=== PATIENT | male | born 1940 | race Caucasian/White ===

== ENCOUNTER → 2017-11-20 | Outpatient (CLI) | payer MEDICARE, OTHER ==
[~2017-11-20] MED LIST: AMIODARONE HCL200 MG PO; ASPIR 8181 MG PO; COUMADIN2.5 MG PO; COUMADIN5 MG PO; GABAPENTIN100 MG PO; HYDROCHLOROTH12.5 M1 PO; LEVEMIR100 UNIT/1 SQ; LIPITOR20 MG PO; NOVOLIN R100 UNIT/1 SQ; RENA-VITE RX T1 EACH PO; TRUJEO SC; TRULICITY IM; VITAMIN D35000 UNIT PO; WARFARIN SODIU2.5 MG PO; Z.0.AMARYL4 MG PO; Z.0.COUMADIN6 MG PO; Z.0.DEMADEX20 MG PO; Z.0.FLOMAX0.4 MG PO; Z.0.HYDRALAZINE HCL5 PO; Z.0.LANTUS100 UNIT/1 SQ; Z.0.LOPRESSOR50 MG PO; Z.0.PRAVACHOL40 MG PO; Z.0.SYNTHROID100 MCG PO; Z.0.ZOLOFT100 MG PO
--- NOTE | 2017-11-20 17:53 | Diagnostic Imaging Report ---
PROCEDURE:X-RAY RIGHT KNEE, THREE OR MORE VIEWS COMPARISON:None. INDICATIONS:KNEE PAIN FINDINGS: The bones are well-mineralized. There are no acute, displaced fractures, dislocations, lytic or blastic lesions. Joint spaces are relatively well-preserved. There is no evidence of a joint effusion. Extensive vascular calcifications. CONCLUSION: No acute abnormalities. MRI of the knee is recommended if there is continued pain and clinical concern for ligamentous or meniscal injury. Scar Acosta M.D. Dictated by: Scar Acosta M.D. on 11/20/2017 at 18:02 Electronically approved by: Scar Acosta M.D. on 11/20/2017 at 18:02
--- NOTE | 2017-11-20 18:08 | Diagnostic Imaging Report ---
PROCEDURE:HIP RIGHT 2-3 VW (+/- PELVIS) COMPARISON:Patients [facility], DX, ABDOMEN-1VIEW (KUB), 02/16/2014, 11:04. INDICATIONS:RIGHT HIP PAIN FINDINGS: BONES:Decreased mineralization. No acute, displaced fracture or dislocation. Mild degenerative changes in the right hip joint. SOFT TISSUES:Extensive vascular calcifications.. OTHER:Negative. CONCLUSION: Mild degenerative changes in the right hip joint. No acute abnormalities. Scar Acosta M.D. Dictated by: Scar Acosta M.D. on 11/20/2017 at 18:17 Electronically approved by: Scar Acosta M.D. on 11/20/2017 at 18:17
== END ==
LOC: RAD 15:31
PROVIDERS: ATTEND Internal Medicine
DX: M25.551 Pain in right hip (principal); M25.561 Pain in right knee

== ENCOUNTER 2017-11-21 13:52 | Inpatient (IN) | payer MEDICARE, OTHER ==
[~2017-11-21] VITALS: Ht 172.7 cm; Wt 99.8 kg
[~2017-11-21 13:52] MED LIST changes: -COUMADIN2.5 MG PO; -COUMADIN5 MG PO
[2017-11-21] MEDS ORDERED: SODIUM CHLORIDE 0.9% 1000ML 1,000 ML IV STA (13:53)
[2017-11-21] MEDS ORDERED: PANTOPRAZOLE 40 MG 10ML VIAL IV STA (13:53)
--- OUTSIDE RECORDS SUMMARY | 2017-11-21 13:55 | XMS REPORT | Clinical Summary ---
Author Author [facility] Organization [facility] Address Unknown Phone Unavailable Care Team Providers Care Bolter Helper Name Role Phone Antoni Salcido MD PCP Allergies Active Allergy Reactions Severity Noted Date Comments No Known Drug Allergies Other (See Comments) 11/23/2015 Current Medications Prescription Sig. Disp. Refills Start End Date Status Date sertraline (ZOLOFT) 100 12/17/19 Active MG tablet 16 warfarin (COUMADIN) 2.5 5 mg. 12/17/19 Active MG tablet 16 multivitamin (THERAGRAN) Take 1 tablet by mouth Active tablet daily. aspirin (ECOTRIN) 81 MG Take 81 mg by mouth Active enteric coated tablet daily. atorvastatin (LIPITOR) 10 Take 10 mg by mouth Active MG tablet daily. gabapentin (NEURONTIN) Take 100 mg by mouth Active 100 MG capsule daily. midodrine (PROAMATINE) 5 TAKE 1 TABLET BY MOUTH ON 3 08/18/20 Active MG tablet THU,THU, AND FRIDAYS 30 16 MIN BEFORE DIALYSIS ED-[facility] 0.8 mg tablet TAKE ONE TABLET BY MOUTH 3 07/17/20 Active ONE TIME DAILY. 16 warfarin (COUMADIN) 5 MG Take 5 mg by mouth once 2 09/07/20 Active tablet daily. 16 TOUJEO SOLOSTAR 300 INJECT 30 UNITS UNDER THE 15 Syringe 1 12/10/19 Active unit/mL (1.5 mL) insulin SKIN EVERY MORNING. 17 pen levothyroxine (SYNTHROID, Take 1 tablet (125 mcg 90 tablet 1 01/07/20 01/07/20 Active LEVOXYL) 125 mcg tablet total) by mouth every 17 18 morning. insulin lispro (HumaLOG 5 units under the skin 10 pen 1 01/20/20 Active KwikPen) 100 unit/mL BID 17 injection pen blood sugar diagnostic Glucose testing TID: 300 strip 1 03/17/20 Active strips (ONETOUCH VERIO) [id number] 17 strip test strips TRULICITY 1.5 mg/0.5 mL INJECT 1 DOSE (0.5 ML) 12 Syringe 1 03/30/20 Active pen injector SUBCUTANEOUSLY EVERY WEEK 17 calcitriol (ROCALTROL) 12/17/19 01/07/20 Discontin 0.25 MCG capsule 16 17 ued dulaglutide (TRULICITY) Inject 1 Dose under the 12 Syringe 1 02/06/20 03/30/20 Discontin 1.5 mg/0.5 mL pen skin once a week. 16 17 ued injector amIODarone (PACERONE) 200 Take 200 mg by mouth 04/07/20 Discontin MG tablet daily. 17 ued insulin GLARGINE (TOUJEO Inject 30 Units under the 10 Syringe 1 12/09/19 Discontin SOLOSTAR) 300 unit/mL skin every morning. 16 17 ued (1.5 mL) insulin pen insulin ASPART (NovoLOG Inject 5 Units under the 10 pen 1 10/02/20 01/20/20 Discontin Flexpen) 100 unit/mL skin 3 (three) times a 16 17 ued insulin pen day with meals. levothyroxine (SYNTHROID, TAKE 1 TABLET (112 MCG 90 tablet 1 11/12/19 01/07/20 Discontin LEVOXYL) 112 mcg tablet TOTAL) BY MOUTH EVERY 17 17 ued MORNING. ONETOUCH VERIO strip test TEST 3 TIMES A DAY 300 strip 1 03/17/20 Discontin strips 17 17 ued Active Problems Problem Noted Date Acute renal failure 11/23/2015 Acute sinusitis 11/23/2015 Pulmonary collapse 11/23/2015 Benign essential HTN 11/23/2015 Chronic kidney disease, stage IV (severe) 11/23/2015 Unspecified disorder of kidney and ureter 11/23/2015 Essential hypertension 11/23/2015 Hypothyroidism 11/23/2015 Obesity, diabetes, and hypertension syndrome 11/23/2015 Other abnormal finding of specimen from respiratory organ or thorax 2015 Uncontrolled type 2 diabetes mellitus 11/23/2015 Encounters Date Type Specialty Care Team Description 10/18/2017 Refill Endocrinology Maria De Jesus Rider MD 07/12/2017 Refill Endocrinology Maria De Jesus Rider MD 04/07/2017 Office Visit Endocrinology Maria De Jesus Rider MD Uncontrolled type 2 diabetes mellitus without complication, without long-term current use of insulin (Primary Dx) 03/30/2017 Refill Endocrinology Maria De Jesus Rider MD 03/17/2017 Refill Endocrinology Em Stephen LVN 03/13/2017 Refill Endocrinology Maria De Jesus Rider MD 01/19/2017 Refill Endocrinology Em Stephen LVN 01/06/2017 Office Visit Endocrinology Maria De Jesus Rider MD Obesity, diabetes, and hypertension syndrome (Primary Dx) 01/06/2017 Orders Only Endocrinology Maria De Jesus Rider MD 12/09/2016 Refill Endocrinology Maria De Jesus Rider MD after 11/20/2016 Family History Medical History Relation Name Comments Coronary artery disease Father Cancer Maternal Aunt destiny Diabetes Maternal Aunt destiny Breast cancer Mother jacques Cancer Mother jacques Relation Name Status Comments Father Maternal Aunt destiny Mother jacques Social History Tobacco Use Types Packs/Day Years Used Date Never Smoker Smokeless Tobacco: Never Used Alcohol Use Drinks/Week oz/Week Comments No Sex Assigned at Date Recorded Not on file Last Filed Vital Signs Vital Sign Reading Time Taken Blood Pressure 90/52 04/07/2017 1:53 PM CDT Pulse 86 04/07/2017 1:53 PM CDT Temperature 36.8 C (98.3 F) 04/07/2017 1:53 PM CDT Respiratory Rate - - Oxygen Saturation 96% 04/07/2017 1:53 PM CDT Inhaled Oxygen - - Concentration Weight 98.9 kg (218 lb) 04/07/2017 1:53 PM CDT Height 172.7 cm (5' 8") 04/07/2017 1:53 PM CDT Body Mass Index 33.15 04/07/2017 1:53 PM CDT Plan of Treatment Health Maintenance Due Date Last Done Comments FOOT EXAM 1948 OPHTHALMOLOGY EXAM 1948 ZOSTER VACCINE 1998 PNEUMOCOCCAL 2003 POLYSACCHARIDE VACCINE AGE 65 AND OVER PNEUMOCOCCAL-13 2003 INFLUENZA VACCINE 05/19/2017 Results * Hemoglobin A1c (03/31/2017 1:04 PM) Component Value Ref Range Hemoglobin A1C 8.0 (H) <5.7 % of total Hgb Comment: For someone without known diabetes, a hemoglobin A1c value of 6.5% or greater indicates that they may have diabetes and this should be confirmed with a follow-up test. For someone with known diabetes, a value <7% indicates that their diabetes is well controlled and a value greater than or equal to 7% indicates suboptimal control. A1c targets should be individualized based on duration of diabetes, age, comorbid conditions, and other considerations. Currently, no consensus exists regarding use of hemoglobin A1c for diagnosis of diabetes for children. Specimen Performing Laboratory [facility] * Comprehensive metabolic panel (03/31/2017 1:04 PM) Only the most recent of 2 results within the time period is included. Component Value Ref Range Glucose 116 (H) 65 - 99 mg/dL Comment: Fasting reference interval For someone without known diabetes, a glucose value between 100 and 125 mg/dL is consistent with prediabetes and should be confirmed with a follow-up test. BUN, whole blood 33 (H) 7 - 25 mg/dL Creatinine 7.90 (H) 0.70 - 1.18 mg/dL Comment: For patients >49 years of age, the reference limit for Creatinine is approximately 13% higher for people identified as -English. EGFR Non-Afr. English 6 (L) > OR=60 mL/min/1.73m2 EGFR 7 (L) > OR=60 mL/min/1.73m2 BUN/creatinine ratio 4 (L) 6 - 22 (calc) Sodium 142 135 - 146 mmol/L Potassium 4.2 3.5 - 5.3 mmol/L Chloride 95 (L) 98 - 110 mmol/L CO2 30 20 - 31 mmol/L Calcium 9.1 8.6 - 10.3 mg/dL Protein 7.2 6.1 - 8.1 g/dL Albumin, S 3.7 3.6 - 5.1 g/dL Globulin, total 3.5 1.9 - 3.7 g/dL (calc) Albumin/globulin ratio 1.1 1.0 - 2.5 (calc) Total bilirubin 0.5 0.2 - 1.2 mg/dL Alkaline phosphatase 113 40 - 115 U/L AST 23 10 - 35 U/L ALT 31 9 - 46 U/L Specimen Performing Laboratory [facility] * POC glycosylated hemoglobin (Hb A1C) (01/06/2017 12:10 PM) Component Value Ref Range POC Hemoglobin A1C 6.0 % Specimen Performing Laboratory Blood * CBC with platelet and differential (12/30/2016 8:05 AM) Component Value Ref Range WBC 7.9 3.8 - 10.8 Thousand/uL RBC 3.78 (L) 4.20 - 5.80 Million/uL HGB 12.0 (L) 13.2 - 17.1 g/dL HCT 37.8 (L) 38.5 - 50.0 % MCV 100.0 80.0 - 100.0 fL MCH 31.8 27.0 - 33.0 pg MCHC 31.8 (L) 32.0 - 36.0 g/dL RDW 18.1 (H) 11.0 - 15.0 % Platelet count 244 140 - 400 Thousand/uL MPV 9.4 7.5 - 12.5 fL Neutrophils, absolute 4132 1500 - 7800 cells/uL Lymphocytes, absolute 2733 850 - 3900 cells/uL Monocytes, absolute 648 200 - 950 cells/uL Eosinophils, absolute 356 15 - 500 cells/uL Basophils, absolute 32 0 - 200 cells/uL Neutrophils 52.3 % Lymphocytes 34.6 % Monocytes 8.2 % Eosinophils 4.5 % Basophils + RC 0.4 % Specimen Performing Laboratory [facility] Narrative FASTING:YES * T3, free (12/30/2016 8:05 AM) Component Value Ref Range T3, free 1.9 (L) 2.3 - 4.2 pg/mL Specimen Performing Laboratory [facility] Narrative FASTING:YES * Thyroid stimulating hormone (12/30/2016 8:05 AM) Component Value Ref Range TSH 3.66 0.40 - 4.50 mIU/L Specimen Performing Laboratory [facility] Narrative FASTING:YES * T4, free (12/30/2016 8:05 AM) Component Value Ref Range T4, free 1.3 0.8 - 1.8 ng/dL Specimen Performing Laboratory [facility] Narrative FASTING:YES * Lipid panel (12/30/2016 8:05 AM) Component Value Ref Range Cholesterol, total 151 125 - 200 mg/dL HDL cholesterol 43 > OR=40 mg/dL Triglycerides 142 <150 mg/dL LDL cholesterol 80 <130 mg/dL (calc) calculated Comment: Desirable range <100 mg/dL for patients with CHD or diabetes and <70 mg/dL for diabetic patients with known heart disease. Cholesterol/HDL ratio 3.5 < OR=5.0 (calc) Non-HDL cholesterol 108 mg/dL (calc) Comment: Target for non-HDL cholesterol is 30 mg/dL higher than LDL cholesterol target. Specimen Performing Laboratory [facility] Narrative FASTING:YES after 11/20/2016 Insurance Payer Benefit Subscriber ID Type Phone Address Plan / Group MEDICARE MEDICARE [id number] Medicare [place], [place] PART A AND B [employer] [place] [id number] Commercial [employer]
--- OUTSIDE RECORDS SUMMARY | 2017-11-21 13:55 | XMS REPORT ---
Author Author [facility] Address Unknown Phone Unavailable Care Team Providers Care Interventional Technologist Name Role Phone DEA GONZALES Unavailable Unavailable Problems This patient has no known problems. Allergies, Adverse Reactions, Alerts This patient has no known allergies or adverse reactions. Medications This patient has no known medications. Results Test Description Test Time Test Comments Text Results Atomic Results Result Comments KNEE RIGHT THREE VIEWS [place] [id number] [place] [address] Patient Name: SUMI GUZMÁN MR #: [id number] : 1940 Age/Sex: 77/M Req #: [id number] Adm Physician: Ordered by: DEA GONZALES MD Report #: [id number] Location: [facility] Room/Bed: Procedure: [id number] DX/KNEE RIGHT THREE VIEWS Exam Date: 11/20/17 Exam Time: 1615 REPORT STATUS: Signed PROCEDURE: X- RAY RIGHT KNEE, THREE OR MORE VIEWS COMPARISON: None. INDICATIONS : KNEE PAIN FINDINGS: The bones are well-mineralized. There are no acute, displaced fractures, dislocations, lytic or blastic lesions. Joint spaces are relatively well-preserved. There is no evidence of a joint effusion. Extensive vascular calcifications. CONCLUSION: No acute abnormalities. MRI of the knee is recommended if there is continued pain and clinical concern for ligamentous or meniscal injury. Marisela Acosta M.D. Dictated by: Marisela Acosta M.D. on 11/20/2017 at 18: 02 Electronically approved by: Marisela Acosta M.D. on 11/20/2017 at 18:02 Dictated By: MARISELA ACOSTA MD 01 Transcribed By: DEJON on 11/20/171801 COPY TO: DEA GONZALES MD HIP RIGHT 2-3 VW (+/- PELVIS) [place] [address] Patient Name: SUMI GUZMÁN MR #: [id number] : 1940 Age/Sex: 77/M Req #: [id number] Adm Physician: Ordered by: DEA GONZALES MD Report #: [id number] Location: [facility] Room/Bed: Procedure: [id number] DX/HIP RIGHT 2-3 VW (+/- PELVIS) Exam Date: Exam Time: REPORT STATUS: Signed PROCEDURE: HIP RIGHT 2-3 VW (+/- PELVIS) COMPARISON: [facility], DX, ABDOMEN-1VIEW (KUB), 02/16/2014, 11:04. INDICATIONS: RIGHT HIP PAIN FINDINGS: BONES: Decreased mineralization. No acute, displaced fracture or dislocation. Mild degenerative changes in the right hip joint. SOFT TISSUES: Extensive vascular calcifications.. OTHER: Negative. CONCLUSION: Mild degenerative changes in the right hip joint. No acute abnormalities. Marisela Acosta M.D. Dictated by: Marisela Acosta M.D. on 11/20/2017 at 18:17 Electronically approved by : Marisela Acosta M.D. on 11/20/2017 at 18:17 Dictated By: MARISELA ACOSTA MD 16 Transcribed By: DEJON on 11/20/171816 COPY TO: DEA GONZALES MD
[2017-11-21] MEDS ORDERED: COUMADIN2.5 MG PO (14:15)
[2017-11-21] MEDS ORDERED: COUMADIN5 MG PO (14:15)
[2017-11-21 14:23] LABS: BASOPHILS % 0.2 % (0.0-1.0); EOSINOPHILS # (AUTO) 0.1 (0.0-0.4); EOSINOPHILS % 0.5 % (0.0-6.0); HEMATOCRIT 19.7 % (38.2-49.6); LYMPHOCYTES # (AUTO) 2.7 (1.0-3.2); LYMPHOCYTES % 16.9 % (18.0-39.1); MEAN CORPUSCULAR VOLUME 106.5 fL (81-99); MONOCYTES # (AUTO) 1.1 (0.2-0.8); MONOCYTES % 7.2 % (4.4-11.3); NEUTROPHILS # (AUTO) 11.7 (2.1-6.9); NEUTROPHILS % 73.5 % (38.7-80.0); PLATELET COUNT 206 x10e3/uL (140-360); RED BLOOD COUNT 1.85 x10e6/uL (4.3-5.7); RED CELL DISTRIBUTION WIDTH 16.3 % (11.7-14.4)
[2017-11-21 14:28] LABS: HEMOGLOBIN 6.1 g/dL (14.0-18.0)
[2017-11-21 14:36] LABS: PARTIAL THROMBOPLASTIN TIME 53.5 seconds (23.8-35.5)
[2017-11-21 14:41] LABS: ALBUMIN 2.8 g/dL (3.5-5.0); ALBUMIN/GLOBULIN RATIO 0.9 (0.8-2.0); ANION GAP 26.8 mmol/L (8-16); CALCIUM 8.3 mg/dL (8.4-10.2); CREATININE, SERUM 6.81 mg/dL (0.72-1.25); INR 4.69; POTASSIUM 3.8 mmol/L (3.5-5.1); PROTHROMBIN TIME 46.7 seconds (11.9-14.5)
--- NOTE | 2017-11-21 14:42 | Diagnostic Imaging Report ---
EXAMINATION: Chest, CHEST SINGLE (PORTABLE) INDICATION: Vomiting. COMPARISON: Portable chest 08/10/2009 FINDINGS: LINES: Right chest cardiac device with leads projecting over the expected regions of the right atrium and ventricle. Heart: Normal cardiac silhouette. Vascular: The pulmonary vasculature is within normal limits. Atherosclerotic calcifications of the aortic arch. Mediastinum: No mediastinal, hilar, or axillary mass or lymphadenopathy. Lungs: No parenchymal mass. No focal consolidation. Bibasilar atelectasis. Pleura: No pleural effusion. No pneumothorax. Bones: No acute osseous abnormality. Degenerative changes of the thoracic spine. Median sternotomy wires. Soft tissues: Normal. Impression: No acute radiographic abnormality. Signed by: Dr. Justus Shankar M.D. on 11/21/2017 2:39 PM
[2017-11-21] MEDS ORDERED: SODIUM CHLORIDE 0.9% 250ML 250 ML IV ONE (15:00)
[2017-11-21] MEDS: PANTOPRAZOL 40MG/SOD CHL 0.9% 50 ML IV SCH ×2 (15:52→21:00)
[2017-11-21] MEDS: ONDANSETRON HCL INJ 2 MG/ML VIAL IV PRN ×2 (16:33→22:51)
--- OUTSIDE RECORDS SUMMARY | 2017-11-21 16:33 | XMS REPORT | Clinical Summary ---
Author Author [facility] Address Unknown Phone Unavailable Care Team Providers Care Predatory Hunter Name Role Phone Antoni Salcido MD PCP [...] strip 1 03/17/20 Active strips (ONETOUCH VERIO) MFZ88-V97.65 17 strip test strips TRULICITY 1.5 mg/0.5 [...] approximately 13% higher for people identified as -Nicaraguan. EGFR Non-Afr. Nicaraguan 6 (L) > OR=60 mL/min/1.73m2 EGFR 7 [...] Phone Address Plan / Group MEDICARE MEDICARE [id number] Medicare [place], [place] PART A AND B [employer] [place] [id number] Commercial [employer]
[2017-11-21] MEDS: HYDROMORPHONE 2MG/ML INJ IV PRN ×2 (16:34→22:51)
[2017-11-21] MEDS: SODIUM CHLORIDE 0.9% 1000ML 1,000 ML IV SCH ×2 (16:40→23:04)
[2017-11-21] MEDS ORDERED: HYDROMORPHONE 2MG/ML INJ IV SCH (18:00)
[2017-11-21] MEDS ORDERED: SODIUM CHLORIDE 0.9% 250ML 250 ML ONE (18:48)
[2017-11-22] VITALS (30 sets, daily range): BP systolic 96–133; BP diastolic 50–75
[2017-11-22 02:54] LABS: HEMOGLOBIN 7.2 g/dL (14.0-18.0)
[2017-11-22 02:55] LABS: HEMATOCRIT 22.1 % (38.2-49.6)
[2017-11-22] MEDS: ONDANSETRON HCL INJ 2 MG/ML VIAL IV PRN ×3 (05:28→16:14)
[2017-11-22] MEDS: HYDROMORPHONE 2MG/ML INJ IV PRN ×2 (05:28→16:14)
[2017-11-22] MEDS: PANTOPRAZOL 40MG/SOD CHL 0.9% 50 ML IV SCH ×4 (05:44→16:36)
[2017-11-22] MEDS: SODIUM CHLORIDE 0.9% 1000ML 1,000 ML IV SCH ×2 (07:04→15:00)
[2017-11-22] MEDS ORDERED: DEXTROSE 50% SYRINGE 50 ML IV PRN (08:15)
[2017-11-22] MEDS: SERTRALINE HCL 100 MG TAB PO SCH (08:47)
[2017-11-22] MEDS: FOLIC ACID/CYANOCOB/PYRIDOXINE TAB PO SCH (08:47)
[2017-11-22] MEDS: GABAPENTIN 100 MG CAP PO SCH (08:47)
[2017-11-22] MEDS ORDERED: SODIUM CHLORIDE 0.9% 250ML 250 ML ONE (10:55)
--- NOTE | 2017-11-22 11:11 | History and Physical ---
DATE OF : 1940 REASON FOR ADMISSION: A 77-year-old male comes in with fatigue and coffee-ground emesis and black stools. HISTORY OF PRESENTING ILLNESS: This is Mr. Shane Scott who has history of aortic valve replacement, is on Coumadin and Warfarin since the replacement, and for 1 week, the patient had black stools and coffee-ground emesis, and the patient did not go to his physician, came in today, and was found to have GI bleeding with a hemoglobin of 6.8. PAST MEDICAL HISTORY: History of hypertension, history of end-stage renal disease, history of aortic valve replacement, and history of pacemaker. MEDICATIONS: As per medication reconciliation. ALLERGIES: See nurses' notes. SOCIAL HISTORY: The patient denies any alcohol or IV drug abuse. Resides in a long term. FAMILY HISTORY: Noncontributory. REVIEW OF SYSTEMS: Negative for chest pain. Positive for some shortness of breath. No nausea, vomiting, or diarrhea. Positive for hematochezia and hematemesis. No blurry vision. No diplopia. PHYSICAL EXAMINATION GENERAL: The patient is alert and oriented x 3, very fatigued and very frail. HEENT: Normocephalic, atraumatic. Pupils reactive to light and accommodation. CVS: S1 and S2, normal. Positive for valvular heart sounds. ABDOMEN: Nontender and nondistended. EXTREMITIES: No clubbing. No cyanosis. No edema. DIAGNOSTIC DATA AND LABORATORY VALUES: Initial rate was 79 with a wide QRS complex, with a right bundle branch block. Chest x-ray, cardiomegaly. CBC, hemoglobin of 6.1, hematocrit of 19.7. Chemistries; BUN 99 and creatinine 6.81. Coags, 46.7 and INR 4.67. The patient has been admitted. GI consult with Dr. Norman Montejo has been done. The patient has been given 2 units of PRBCs with 2 FFPs for his INR. We will continue to monitor the patient. I did talk to Dr. Montejo and possibly we will do EGD to evaluate for upper GI bleed. Further recommendations, of course, we will continue to monitor the patient. The patient might need also colonoscopy, but we will first proceed with EGD. Also needs a renal consult for end-stage renal disease and insulin sliding scale for diabetes mellitus. Job#: [id number] HERNANDO
[2017-11-22] MEDS ORDERED: INSULIN REGULAR, HUMAN 100 UNIT/1 ML 3ML VIAL SQ SCH (11:30)
[2017-11-22] MEDS: INSULIN LISPRO 100 UNIT/1 ML 3ML VIAL SQ SCH ×3 (12:00→20:24)
[2017-11-22 16:38] LABS: HEMATOCRIT 21.3 % (38.2-49.6)
[2017-11-22] MEDS: ATORVASTATIN 10 MG TAB PO SCH (20:24)
[2017-11-22 22:31] LABS: HEMATOCRIT 20.8 % (38.2-49.6)
[2017-11-22 22:40] LABS: HEMOGLOBIN 6.7 g/dL (14.0-18.0)
[2017-11-22] MEDS ORDERED: FUROSEMIDE INJ 10 MG/ML 2 ML VIAL IV ONE (22:45)
[2017-11-22] MEDS ORDERED: SODIUM CHLORIDE 0.9% 250ML 250 ML IV ONE (22:45)
[2017-11-23] VITALS (9 sets, daily range): BP systolic 99–120; BP diastolic 54–78
[2017-11-23] MEDS ORDERED: PHYTONADIONE 10 MG/ML AMP IV ONE (00:15)
[2017-11-23] MEDS: SODIUM CHLORIDE 0.9% 1000ML 1,000 ML IV SCH ×4 (00:16→21:02)
[2017-11-23] MEDS: PANTOPRAZOL 40MG/SOD CHL 0.9% 50 ML IV SCH ×5 (00:16→16:36)
[2017-11-23] MEDS ORDERED: PHYTONADIONE 10MG/ML 20 MG in SODIUM CHLORIDE 0.9% 100 ML 100 ML IV ONE (00:30)
[2017-11-23] MEDS ORDERED: PHYTONADIONE 10 MG/ML ONE (00:31)
[2017-11-23] MEDS ORDERED: SODIUM CHLORIDE 0.9% 250ML 250 ML ONE ×2 (00:42→14:02)
[2017-11-23] MEDS: HYDROMORPHONE 2MG/ML INJ IV PRN (01:40)
[2017-11-23] MEDS ORDERED: FUROSEMIDE INJ 10 MG/ML 2 ML VIAL ONE (03:25)
[2017-11-23 03:26] LABS: INR 1.99; PROTHROMBIN TIME 23.7 seconds (11.9-14.5)
--- NOTE | 2017-11-23 05:40 | Consultation ---
DATE OF CONSULTATION: NEPHROLOGY CONSULTATION REASON FOR CONSULTATION: HD management. CHIEF COMPLAINT: GI bleed. HPI: This is a 77-year-old male with known ESRD, on HD. He also has an aortic valve, on Coumadin, who reports to the ED with complaints of 1-week history of coffee-ground emesis and black tarry stool. He did not go to the physician, and then presented to the ED and found to have a hemoglobin of 6.8. He was complaining of generalized fatigue and weakness. He also reports having significant amounts of vomiting. The patient denies any chest pain or palpitations. The patient was seen and evaluated at bedside in the ER. Currently, doing well with no new complaints. REVIEW OF SYSTEMS: Pertinent positives are black tarry stool, coffee-ground emesis. Pertinent negatives are denies any chest pain, palpitations, diarrhea, hematuria, dysuria, frequency, urgency, abdominal pain, headache, shortness of breath, or any other complaints. The rest of the 14-point review of systems have been reviewed with the patient and are negative. ALLERGIES: NO KNOWN DRUG ALLERGIES. HOME MEDICATIONS 1. Aspirin 81 mg daily. 2. Lipitor 20 mg daily. 3. Vitamin D3 5000 units daily. 4. Gabapentin 100 mg daily. 5. Sertraline 100 mg daily. 6. He takes Nephro-Coreen 1 tab daily. 7. Coumadin 5 mg daily. 8. He also takes insulin. PAST MEDICAL HISTORY: Diabetes, hypertension, end-stage renal disease, on HD, aortic valve replacement. SURGICAL HISTORY: Aortic valve replacement. FAMILY HISTORY: Hypertension and diabetes. SOCIAL HISTORY: Does not drink. No drugs. No alcohol. Good social support. PHYSICAL EXAMINATION VITAL SIGNS: Temperature is 96.9, pulse 79, respiratory rate 22, blood pressure 120/62, pulse ox 100% on 3 L nasal cannula. GENERAL: Not in acute distress. Alert and oriented times 3. Cooperative on exam. HEENT: Head is normocephalic and atraumatic. Eyes: Pupils equal, round and reactive to light bilaterally. Extraocular movements intact bilaterally. NECK: Supple. Good range of motion. Throat with no evidence of erythema or exudates in the posterior pharynx. Has poor dentition. PULMONARY: Clear to auscultation bilaterally. No wheezing. No rales. No rhonchi. CARDIOVASCULAR: S1 and S2. No murmurs, rubs or gallops appreciated. ABDOMEN: Soft, nondistended and nontender to palpation. Bowel sounds present. MUSCULOSKELETAL: Strength is 5/5 throughout. No muscle on examination. No rash noted. NEUROLOGICAL: Cranial nerves II-XII grossly intact. No evidence of any neurological deficit on exam. SKIN: Intact. Warm to touch. Good cap refill. PSYCHIATRIC: Normal mood and affect. EXTREMITIES: No edema. Good range of motion throughout. LAB FINDINGS: Show a white count of 15.9, hemoglobin 7.2 and on admission 6.1. Given blood transfusion. Platelets of 206,000. Coagulation: PT is 4.6, PTT 53. Chemistry: Sodium 139, potassium 3.8, chloride 96, bicarb 29, anion gap 26, BUN 99, creatinine 6.8, glucose is 359. Calcium is 8.3. LFTs were normal. Albumin 2.8. MICROBIOLOGY: None. IMAGING STUDIES: Chest x-ray with no acute abnormality. IMPRESSION 1. Upper gastrointestinal bleed with coffee-ground emesis and tarry black stool. 2. End-stage renal disease, on hemodialysis on Thursday, Thursday and Thursday. 3. Anemia of end-stage renal disease and acute blood loss. 4. 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 5. Diabetes. 6. Hypertension. At this time, he is on Protonix drip. N.p.o. He also looks significantly dehydrated due to vomiting. Okay to continue with IV fluids. At this time, based on his electrolytes and volume status, he does not need dialysis today. Okay to give blood products. Will dialyze him first thing in the morning. I discussed this with the nurse to have the HD nurse call me. Continue with phos binders, renal diet and Nephro-Coreen. In relation to his anemia, he is currently getting blood transfusion and FFPs. Will repeat labs in the morning. Otherwise, thank you so much for this consultation. Will continue to follow with you. Job#: [id number] LIZBET
[2017-11-23 06:10] LABS: BASOPHILS % 0.2 % (0.0-1.0); EOSINOPHILS # (AUTO) 0.6 (0.0-0.4); EOSINOPHILS % 3.5 % (0.0-6.0); HEMATOCRIT 23.6 % (38.2-49.6); LYMPHOCYTES # (AUTO) 2.1 (1.0-3.2); LYMPHOCYTES % 12.4 % (18.0-39.1); MEAN CORPUSCULAR HEMOGLOBIN 31.6 pg (28-32); MEAN CORPUSCULAR HGB CONC 32.6 g/dL (31-35); MONOCYTES # (AUTO) 1.4 (0.2-0.8); NEUTROPHILS # (AUTO) 12.6 (2.1-6.9); NEUTROPHILS % 74.5 % (38.7-80.0); PLATELET COUNT 151 x10e3/uL (140-360); RED BLOOD COUNT 2.44 x10e6/uL (4.3-5.7); RED CELL DISTRIBUTION WIDTH 17.2 % (11.7-14.4)
[2017-11-23 06:16] LABS: HEMOGLOBIN 7.7 g/dL (14.0-18.0)
[2017-11-23 06:17] LABS: MEAN CORPUSCULAR VOLUME 96.7 fL (81-99)
[2017-11-23 06:44] LABS: CALCIUM 8.3 mg/dL (8.4-10.2); CREATININE, SERUM 8.93 mg/dL (0.72-1.25)
[2017-11-23] MEDS: INSULIN LISPRO 100 UNIT/1 ML 3ML VIAL SQ SCH ×4 (07:30→23:10)
[2017-11-23] MEDS: SERTRALINE HCL 100 MG TAB PO SCH (08:00)
[2017-11-23] MEDS: GABAPENTIN 100 MG CAP PO SCH (08:00)
[2017-11-23] MEDS: FOLIC ACID/CYANOCOB/PYRIDOXINE TAB PO SCH (08:00)
[2017-11-23] MEDS ORDERED: SODIUM CHLORIDE 0.9% 1000ML 2,000 ML ONE (08:28)
[2017-11-23] MEDS ORDERED: ALBUMIN HUMAN 12.5GM / 50ML IV PRN (09:15)
[2017-11-23] MEDS ORDERED: MANNITOL 25% 12.5GM/50 ML VIAL IV PRN (09:15)
[2017-11-23] MEDS ORDERED: SODIUM CHLORIDE 0.9% 1000ML 2,000 ML IV PRN (09:15)
[2017-11-23] MEDS ORDERED: SODIUM CHLORIDE 0.9% 250ML 500 ML IV PRN (09:15)
[2017-11-23 13:26] LABS: HEMATOCRIT 28.9 % (38.2-49.6); HEMOGLOBIN 9.8 g/dL (14.0-18.0)
[2017-11-23 13:53] LABS: INR 1.04; PROTHROMBIN TIME 14.1 seconds (11.9-14.5)
[2017-11-23 13:54] LABS: PARTIAL THROMBOPLASTIN TIME 34.9 seconds (23.8-35.5)
--- NOTE | 2017-11-23 15:19 | Operative Report ---
DATE OF PROCEDURE: November 23, 2017 REFERRING PHYSICIAN: Dr. Jayson Upton PROCEDURE PERFORMED: Esophagogastroduodenoscopy. INDICATIONS FOR EGD: Anemia. History of melena. Hematemesis. MEDICATION: Patient was done under MAC. Please see anesthesiologist's note. PROCEDURE: With the patient in the left lateral decubitus position, the flexible fiberoptic Olympus gastroscope was introduced into the esophagus under direct visualization without any difficulty. There was some patchy erythema noted in the distal esophagus. The scope was then advanced with ease into the stomach, and mucosa overlying the antrum and the body revealed some diffuse erythema. The pylorus was of normal contour and shape. It was intubated with ease, and the scope was advanced all the way to the 2nd portion of the duodenum. The scope was then withdrawn slowly. Mucosa overlying the proximal 2nd portion and the duodenal bulb appeared to be within normal limits. The scope was then withdrawn back into the stomach and retroflexed. The mucosa overlying the fundus and the cardia appeared to be within normal limits. The scope was then straightened out. The stomach was decompressed. The scope was subsequently withdrawn. Patient tolerated the procedure well. IMPRESSION 1. Distal esophagitis. 2. Gastritis. PLAN: Follow H and H. Findings do not explain the patient's anemia or history of melena. Will need a colonoscopy. Job#: [id number] cc:JAYSON UPTON MD
[2017-11-23] MEDS ORDERED: LIDOCAINE HCL 2% LOCAL INJ 5 ML SDV VIAL INJ ONE (18:40)
[2017-11-23] MEDS ORDERED: PROPOFOL IV EMULSION 10 MG/ML 20 ML VIAL ONE (18:40)
[2017-11-23 18:46] LABS: HEMATOCRIT 24.9 % (38.2-49.6); HEMOGLOBIN 8.4 g/dL (14.0-18.0)
[2017-11-23] MEDS: ATORVASTATIN 10 MG TAB PO SCH (21:03)
[2017-11-24] VITALS (8 sets, daily range): BP systolic 105–123; BP diastolic 54–83
[2017-11-24 00:34] LABS: HEMATOCRIT 26.1 % (38.2-49.6); HEMOGLOBIN 8.7 g/dL (14.0-18.0)
[2017-11-24] MEDS: PANTOPRAZOL 40MG/SOD CHL 0.9% 50 ML IV SCH ×6 (00:34→23:58)
[2017-11-24 06:20] LABS: HEMOGLOBIN 9.2 g/dL (14.0-18.0)
[2017-11-24] MEDS: SODIUM CHLORIDE 0.9% 1000ML 1,000 ML IV SCH (06:54)
[2017-11-24] MEDS: INSULIN LISPRO 100 UNIT/1 ML 3ML VIAL SQ SCH ×4 (07:30→20:06)
[2017-11-24] MEDS: GABAPENTIN 100 MG CAP PO SCH (08:00)
[2017-11-24] MEDS: FOLIC ACID/CYANOCOB/PYRIDOXINE TAB PO SCH (08:00)
[2017-11-24] MEDS: SERTRALINE HCL 100 MG TAB PO SCH (08:00)
[2017-11-24 08:51] LABS: BASOPHILS % 0.2 % (0.0-1.0); EOSINOPHILS # (AUTO) 0.9 (0.0-0.4); EOSINOPHILS % 5.5 % (0.0-6.0); HEMATOCRIT 29.2 % (38.2-49.6); HEMOGLOBIN 9.4 g/dL (14.0-18.0); LYMPHOCYTES % 12.5 % (18.0-39.1); MEAN CORPUSCULAR HEMOGLOBIN 31.4 pg (28-32); MEAN CORPUSCULAR HGB CONC 32.2 g/dL (31-35); MEAN CORPUSCULAR VOLUME 97.7 fL (81-99); MONOCYTES # (AUTO) 1.4 (0.2-0.8); MONOCYTES % 8.5 % (4.4-11.3); NEUTROPHILS # (AUTO) 11.5 (2.1-6.9); NEUTROPHILS % 71.6 % (38.7-80.0); PLATELET COUNT 146 x10e3/uL (140-360); RED BLOOD COUNT 2.99 x10e6/uL (4.3-5.7); RED CELL DISTRIBUTION WIDTH 18.3 % (11.7-14.4)
[2017-11-24 09:01] LABS: ANION GAP 16.1 mmol/L (8-16); CALCIUM 8.2 mg/dL (8.4-10.2); CREATININE, SERUM 6.55 mg/dL (0.72-1.25); POTASSIUM 4.1 mmol/L (3.5-5.1)
[2017-11-24 12:21] LABS: HEMATOCRIT 28.5 % (38.2-49.6); HEMOGLOBIN 9.4 g/dL (14.0-18.0)
[2017-11-24 18:06] LABS: HEMATOCRIT 30.9 % (38.2-49.6); HEMOGLOBIN 10.1 g/dL (14.0-18.0)
[2017-11-24] MEDS: ATORVASTATIN 10 MG TAB PO SCH (20:14)
[2017-11-25] VITALS (9 sets, daily range): BP systolic 95–123; BP diastolic 48–74
[2017-11-25] MEDS ORDERED: BISACODYL 5 MG TAB EC PO ONE ×2 (02:30→03:30)
[2017-11-25] MEDS ORDERED: CITRATE OF MAGNESIA 300ML BOTTLE PO ONE ×2 (05:00→07:00)
[2017-11-25] MEDS: PANTOPRAZOL 40MG/SOD CHL 0.9% 50 ML IV SCH ×4 (05:43→20:47)
[2017-11-25] MEDS: INSULIN LISPRO 100 UNIT/1 ML 3ML VIAL SQ SCH ×4 (07:23→21:00)
[2017-11-25] MEDS: FOLIC ACID/CYANOCOB/PYRIDOXINE TAB PO SCH (09:00)
[2017-11-25] MEDS: SERTRALINE HCL 100 MG TAB PO SCH (09:00)
[2017-11-25] MEDS: GABAPENTIN 100 MG CAP PO SCH (09:00)
[2017-11-25] MEDS ORDERED: PEG (High)/E-LYTE SOLN 4,000 ML BTL PO ONE (17:00)
[2017-11-25] MEDS: ATORVASTATIN 10 MG TAB PO SCH (22:16)
[2017-11-26] VITALS (7 sets, daily range): BP systolic 90–120; BP diastolic 56–69
[2017-11-26 00:30] LABS: BASOPHILS % 0.3 % (0.0-1.0); EOSINOPHILS # (AUTO) 0.8 (0.0-0.4); EOSINOPHILS % 5.2 % (0.0-6.0); HEMATOCRIT 30.3 % (38.2-49.6); HEMOGLOBIN 9.8 g/dL (14.0-18.0); LYMPHOCYTES # (AUTO) 2.1 (1.0-3.2); LYMPHOCYTES % 13.9 % (18.0-39.1); MEAN CORPUSCULAR HEMOGLOBIN 31.7 pg (28-32); MEAN CORPUSCULAR HGB CONC 32.3 g/dL (31-35); MEAN CORPUSCULAR VOLUME 98.1 fL (81-99); MONOCYTES # (AUTO) 0.9 (0.2-0.8); NEUTROPHILS # (AUTO) 11.1 (2.1-6.9); NEUTROPHILS % 72.7 % (38.7-80.0); PLATELET COUNT 199 x10e3/uL (140-360); RED BLOOD COUNT 3.09 x10e6/uL (4.3-5.7); RED CELL DISTRIBUTION WIDTH 18.4 % (11.7-14.4)
[2017-11-26] MEDS: PANTOPRAZOL 40MG/SOD CHL 0.9% 50 ML IV SCH ×5 (00:52→20:30)
[2017-11-26] MEDS: HYDROMORPHONE 2MG/ML INJ IV PRN ×2 (01:35→13:46)
[2017-11-26] MEDS: INSULIN LISPRO 100 UNIT/1 ML 3ML VIAL SQ SCH ×4 (07:30→21:00)
[2017-11-26 07:57] LABS: BASOPHILS % 0.2 % (0.0-1.0); EOSINOPHILS # (AUTO) 0.9 (0.0-0.4); EOSINOPHILS % 6.3 % (0.0-6.0); HEMATOCRIT 29.4 % (38.2-49.6); HEMOGLOBIN 9.5 g/dL (14.0-18.0); LYMPHOCYTES # (AUTO) 2.1 (1.0-3.2); LYMPHOCYTES % 14.3 % (18.0-39.1); MEAN CORPUSCULAR HEMOGLOBIN 31.8 pg (28-32); MEAN CORPUSCULAR HGB CONC 32.3 g/dL (31-35); MEAN CORPUSCULAR VOLUME 98.3 fL (81-99); MONOCYTES # (AUTO) 1.1 (0.2-0.8); MONOCYTES % 7.3 % (4.4-11.3); NEUTROPHILS # (AUTO) 10.3 (2.1-6.9); PLATELET COUNT 197 x10e3/uL (140-360); RED BLOOD COUNT 2.99 x10e6/uL (4.3-5.7); RED CELL DISTRIBUTION WIDTH 18.6 % (11.7-14.4)
[2017-11-26 08:13] LABS: ANION GAP 23.8 mmol/L (8-16); CALCIUM 8.5 mg/dL (8.4-10.2); CREATININE, SERUM 10.52 mg/dL (0.72-1.25); POTASSIUM 3.8 mmol/L (3.5-5.1)
[2017-11-26] MEDS: FOLIC ACID/CYANOCOB/PYRIDOXINE TAB PO SCH (09:16)
[2017-11-26] MEDS: SERTRALINE HCL 100 MG TAB PO SCH (09:16)
[2017-11-26] MEDS: GABAPENTIN 100 MG CAP PO SCH (09:16)
[2017-11-26] MEDS: ONDANSETRON HCL INJ 2 MG/ML VIAL IV PRN (13:45)
[2017-11-26] MEDS: ATORVASTATIN 10 MG TAB PO SCH (21:00)
[2017-11-27] VITALS (8 sets, daily range): BP systolic 90–144; BP diastolic 46–71
[2017-11-27] MEDS: HYDROMORPHONE 2MG/ML INJ IV PRN (00:20)
[2017-11-27] MEDS ORDERED: BISACODYL 5 MG TAB EC PO ONE ×4 (00:30→02:00)
[2017-11-27] MEDS: PANTOPRAZOL 40MG/SOD CHL 0.9% 50 ML IV SCH ×5 (01:52→20:00)
[2017-11-27] MEDS ORDERED: CITRATE OF MAGNESIA 300ML BOTTLE PO ONE (05:00)
[2017-11-27] MEDS: INSULIN LISPRO 100 UNIT/1 ML 3ML VIAL SQ SCH ×4 (07:30→19:58)
[2017-11-27] MEDS: FOLIC ACID/CYANOCOB/PYRIDOXINE TAB PO SCH (08:46)
[2017-11-27] MEDS: GABAPENTIN 100 MG CAP PO SCH (08:47)
[2017-11-27] MEDS: SERTRALINE HCL 100 MG TAB PO SCH (08:47)
[2017-11-27 13:55] LABS: ANION GAP 21.7 mmol/L (8-16); CALCIUM 8.4 mg/dL (8.4-10.2); CREATININE, SERUM 7.71 mg/dL (0.72-1.25); POTASSIUM 3.7 mmol/L (3.5-5.1)
[2017-11-27] MEDS ORDERED: SODIUM CHLORIDE 0.9% 500ML 500 ML ONE (14:14)
--- NOTE | 2017-11-27 16:20 | Operative Report ---
DATE OF PROCEDURE: November 27, 2017 REFERRING PHYSICIAN: Dr. Jayson Upton. PROCEDURE PERFORMED: Colonoscopy and polypectomy. INDICATIONS FOR COLONOSCOPY: History of massive GI bleed. Findings on the EGD did not necessarily explain the patient's blood loss. MEDICATION: Patient was done under MAC. Please see anesthesiologist's note. PROCEDURE: With the patient in the left lateral decubitus position, the flexible fiberoptic Olympus colonoscope was inserted into the rectum with ease and advanced all the way to the cecum. Mucosa overlying the cecum appeared to be within normal limits. Two polyps were snared and 1 polyp was hot biopsied from the ascending colon. One polyp was snared from the transverse colon. One polyp was snared from the descending colon, and 1 polyp was snared and 1 polyp was hot biopsied from the sigmoid. The scope was then retroflexed into the distal rectum, and moderate-size internal hemorrhoids were noted, none of which was actively bleeding. The scope was then straightened out. It was subsequently withdrawn. Patient tolerated the procedure well. IMPRESSION 1. Ascending colon polyps times 3, two snared and one hot biopsied. 2. Transverse colon polyp, snared. 3. Descending colon polyp, snared. 4. Sigmoid colon polyps times 2, one snared and one hot biopsied. 5. Internal hemorrhoids, none actively bleeding. PLAN: Follow up histology. Patient will need a small-bowel series to complete workup. Patient will need a followup colonoscopy in 3 years. Job#: [id number] cc:JAYSON UPTON MD
[2017-11-27] MEDS: TRAMADOL HCL 50 MG TAB PO PRN ×2 (16:40→23:00)
[2017-11-27] MEDS ORDERED: PROPOFOL IV EMULSION 10 MG/ML 50 ML VIAL ONE (17:25)
[2017-11-27] MEDS ORDERED: LIDOCAINE HCL 2% LOCAL INJ 5 ML SDV VIAL INJ ONE (17:25)
[2017-11-27] MEDS: ATORVASTATIN 10 MG TAB PO SCH (19:55)
[2017-11-28] VITALS (8 sets, daily range): BP systolic 90–134; BP diastolic 46–69
[2017-11-28] MEDS: PANTOPRAZOL 40MG/SOD CHL 0.9% 50 ML IV SCH ×5 (00:53→21:25)
[2017-11-28] MEDS: TRAMADOL HCL 50 MG TAB PO PRN ×3 (06:42→21:05)
[2017-11-28 07:17] LABS: BASOPHILS % 0.2 % (0.0-1.0); EOSINOPHILS # (AUTO) 0.1 (0.0-0.4); HEMATOCRIT 27.6 % (38.2-49.6); HEMOGLOBIN 8.9 g/dL (14.0-18.0); LYMPHOCYTES # (AUTO) 1.1 (1.0-3.2); LYMPHOCYTES % 7.3 % (18.0-39.1); MEAN CORPUSCULAR HEMOGLOBIN 31.6 pg (28-32); MEAN CORPUSCULAR HGB CONC 32.2 g/dL (31-35); MEAN CORPUSCULAR VOLUME 97.9 fL (81-99); MONOCYTES % 6.9 % (4.4-11.3); NEUTROPHILS % 83.3 % (38.7-80.0); PLATELET COUNT 213 x10e3/uL (140-360); RED BLOOD COUNT 2.82 x10e6/uL (4.3-5.7); RED CELL DISTRIBUTION WIDTH 18.6 % (11.7-14.4)
[2017-11-28] MEDS: INSULIN LISPRO 100 UNIT/1 ML 3ML VIAL SQ SCH ×4 (07:30→21:00)
[2017-11-28 07:34] LABS: ANION GAP 22.7 mmol/L (8-16); CALCIUM 8.2 mg/dL (8.4-10.2); CREATININE, SERUM 9.13 mg/dL (0.72-1.25); POTASSIUM 3.7 mmol/L (3.5-5.1)
[2017-11-28] MEDS: SERTRALINE HCL 100 MG TAB PO SCH (08:57)
[2017-11-28] MEDS: GABAPENTIN 100 MG CAP PO SCH (08:57)
[2017-11-28] MEDS: FOLIC ACID/CYANOCOB/PYRIDOXINE TAB PO SCH (08:57)
[2017-11-28] MEDS: ATORVASTATIN 10 MG TAB PO SCH (21:04)
[2017-11-29] VITALS (8 sets, daily range): BP systolic 104–145; BP diastolic 64–97
[2017-11-29] MEDS: PANTOPRAZOL 40MG/SOD CHL 0.9% 50 ML IV SCH ×3 (04:35→13:30)
[2017-11-29] MEDS: INSULIN LISPRO 100 UNIT/1 ML 3ML VIAL SQ SCH ×4 (07:30→21:11)
[2017-11-29] MEDS: SERTRALINE HCL 100 MG TAB PO SCH (08:47)
[2017-11-29] MEDS: GABAPENTIN 100 MG CAP PO SCH (08:47)
[2017-11-29] MEDS: FOLIC ACID/CYANOCOB/PYRIDOXINE TAB PO SCH (08:47)
[2017-11-29] MEDS: TRAMADOL HCL 50 MG TAB PO PRN (11:14)
[2017-11-29] MEDS: ATORVASTATIN 10 MG TAB PO SCH (20:56)
[2017-11-30] VITALS (7 sets, daily range): BP systolic 118–132; BP diastolic 59–80
[2017-11-30 06:35] LABS: BASOPHILS % 0.2 % (0.0-1.0); EOSINOPHILS # (AUTO) 0.6 (0.0-0.4); EOSINOPHILS % 4.2 % (0.0-6.0); HEMOGLOBIN 9.2 g/dL (14.0-18.0); LYMPHOCYTES # (AUTO) 1.5 (1.0-3.2); LYMPHOCYTES % 11.2 % (18.0-39.1); MEAN CORPUSCULAR HEMOGLOBIN 31.5 pg (28-32); MEAN CORPUSCULAR HGB CONC 31.7 g/dL (31-35); MEAN CORPUSCULAR VOLUME 99.3 fL (81-99); MONOCYTES # (AUTO) 1.1 (0.2-0.8); MONOCYTES % 8.2 % (4.4-11.3); NEUTROPHILS # (AUTO) 9.8 (2.1-6.9); NEUTROPHILS % 75.2 % (38.7-80.0); PLATELET COUNT 215 x10e3/uL (140-360); RED BLOOD COUNT 2.92 x10e6/uL (4.3-5.7); RED CELL DISTRIBUTION WIDTH 18.4 % (11.7-14.4)
[2017-11-30 07:00] LABS: ANION GAP 19.9 mmol/L (8-16); CALCIUM 8.4 mg/dL (8.4-10.2); CREATININE, SERUM 8.41 mg/dL (0.72-1.25); MAGNESIUM 2.4 MG/DL (1.3-2.1); POTASSIUM 3.9 mmol/L (3.5-5.1)
[2017-11-30] MEDS: INSULIN LISPRO 100 UNIT/1 ML 3ML VIAL SQ SCH ×4 (07:40→20:19)
[2017-11-30] MEDS: FOLIC ACID/CYANOCOB/PYRIDOXINE TAB PO SCH (09:19)
[2017-11-30] MEDS: SERTRALINE HCL 100 MG TAB PO SCH (09:20)
[2017-11-30] MEDS: GABAPENTIN 100 MG CAP PO SCH (09:21)
[2017-11-30] MEDS: PANTOPRAZOLE SOD 40 MG TABEC PO SCH (09:21)
[2017-11-30] MEDS ORDERED: HEPARIN SOD (PORCINE) 1000 UNIT/ML SDV IV PRN (15:15)
--- NOTE | 2017-11-30 18:25 | Consultation ---
DATE OF CONSULTATION: PULMONARY CONSULTATION Patient of Dr. Levin, Dr. Saenz and Dr. Montejo. A charming but unfortunate 77-year-old gentleman with a history of congestive heart failure, aortic stenosis, status post aortic valve replacement, called today because of hypoxia. He was admitted with elevated pro time and a history of coffee-ground emesis and black stools and weakness. There is no history of chest pain. The patient has never smoked. Worked as a harden in a chemical plant. ALLERGIES: NO KNOWN DRUG ALLERGIES. MEDICATIONS: Have included aspirin, Lipitor, vitamin D, Neurontin, Sertraline, Nepro-Coreen, Coumadin, insulin, and warfarin. He is a diabetic and hypertensive, on dialysis. Weak and requires a walker. Claims to have had a remote stroke though is complaint is one of numbness in the fingers. Makes it difficult for him to use his hands unless he can see what he is touching. He has encephalomalacia in the left frontoparietal area. He has a pacemaker with carotid surgery. He never smoked or drank. PHYSICAL EXAMINATION GENERAL: This is a well-developed white male in no acute distress. He has a facial rash. VITALS: Temperature 98.8, pulse 80, respirations 20, blood pressure 122/60. HEENT: Head is normocephalic and atraumatic. LUNGS: Bilateral rales. HEART: Regular rhythm. ABDOMEN: Nontender. EXTREMITIES: Nonedematous. He is weak and difficulty even getting in bed. IMPRESSION 1. Neuropathy of the upper extremities. 2. Old cerebrovascular accident. 3. Aortic valve replacement. 4. Apparently body . No history of asthma, COPD or smoking. Will request chest x-ray. Consider CT scan. If this is equivocal, arrange for supplemental oxygen. Volume status as per nephrology service. Thank you for this kind referral. Job#: [id number] PA
--- NOTE | 2017-11-30 18:29 | Diagnostic Imaging Report ---
PROCEDURE: X-RAY CHEST, TWO VIEWS COMPARISON: Chest x-ray 11/21/17 INDICATIONS: SHORTNESS BREATHE FINDINGS: LUNGS: There is mild bibasilar atelectasis. Aerated lung demonstrates no consolidation or mass. There is mild eventration of the right diaphragm, similar to previous exam PLEURA: Blunting of the right lateral costophrenic angle is new. No pneumothorax. Left lateral costophrenic angle is sharp. HEART \T\ MEDIASTINUM: The heart is enlarged. Pacer/defibrillator wires terminate in the right atrium and right ventricle. Pacemaker battery pack is stable in orientation. BONES \T\ SOFT TISSUES: Median sternotomy wires are intact. There are no focal osseous lesions. Soft tissues are unremarkable. CONCLUSION: Small right pleural effusion. Stable eventration of right diaphragm. No evidence of infiltrate. Dictated by: Naif Dockery M.D. on 11/30/2017 at 18:39 Electronically approved by: Naif Dockery M.D. on 11/30/2017 at 18:39
[2017-11-30] MEDS: ATORVASTATIN 10 MG TAB PO SCH (23:26)
[2017-12-01] VITALS (7 sets, daily range): BP systolic 112–146; BP diastolic 51–99
[2017-12-01] MEDS: TRAMADOL HCL 50 MG TAB PO PRN (01:41)
--- NOTE | 2017-12-01 05:33 | Diagnostic Imaging Report ---
EXAM: CT CHEST WO DATE: 12/01/2017 5:00 AM INDICATION: Hypoxia COMPARISON: None TECHNIQUE: Multidetector CT scanning of the chest was performed. Coronal and sagittal multiplanar reformations were obtained. IV Contrast: None FINDINGS: LUNGS AND PLEURA: Small right and trace left pleural effusions are present. There is mild dependent bibasilar atelectasis. Patent central airways. HEART, MEDIASTINUM, VESSELS: Right chest wall dual-lead pacer is noted with right atrial and ventricular leads. Mild cardiomegaly with severe coronary artery and aortic atherosclerotic calcifications status post sternotomy. There is no pericardial effusion versus suspicious adenopathy. UPPER ABDOMEN: No acute abnormality on suboptimal noncontrast evaluation. MUSCULOSKELETAL: Scattered degenerative changes. IMPRESSION: 1. Small right and trace left pleural effusions with associated atelectasis. 2. Cardiomegaly status post sternotomy with right chest wall pacer. No edema. Signed by: Dr Myah Ledbetter MD on 12/01/2017 5:30 AM
[2017-12-01] MEDS: INSULIN LISPRO 100 UNIT/1 ML 3ML VIAL SQ SCH ×4 (07:30→21:03)
[2017-12-01] MEDS: GABAPENTIN 100 MG CAP PO SCH (07:58)
[2017-12-01] MEDS: PANTOPRAZOLE SOD 40 MG TABEC PO SCH (07:58)
[2017-12-01] MEDS: FOLIC ACID/CYANOCOB/PYRIDOXINE TAB PO SCH (07:58)
[2017-12-01] MEDS: SERTRALINE HCL 100 MG TAB PO SCH (07:58)
--- NOTE | 2017-12-01 18:43 | Diagnostic Imaging Report ---
EXAM: VENTILATION PERFUSION LUNG SCAN INDICATION: 77 M with acute onset SOB; history of multiple strokes and is dependent on supplemental oxygen. COMPARISON: CT chest (w/o contrast) 11/30/2017 DISCUSSION: Xenon-133 gas 11.7 mCi was administered via inhalation. Dynamic images of the lungs in the posterior projection were obtained through single breath and washout phases. Distribution of tracer activity is irregular throughout the lungs with relatively decreased tracer in the lower lobes bilaterally. Washout is diffusely delayed with air trapping in the right lung base. Perfusion images of the lungs in multiple projections were obtained following intravenous administration of 5.4 mCi of Tc-99m MAA. Distribution of tracer is irregular throughout the lungs with relatively decreased tracer in the lower lobes bilaterally. There are no segmental perfusion defects of any size. The perfusion images are well-matched to the ventilation images. The cardiac silhouette is enlarged. IMPRESSION: 1. Scan findings represent a VERY LOW probability for acute pulmonary embolic disease based on the PIOPED II criteria. 2. Scan findings are compatible with diffuse parenchymal and/or obstructive lung disease. Suspect obstructive lung disease more severe in the lower lobes that the upper lobes but findings could also be due to pleural effusions. Signed by: Dr. Danay Haley M.D. on 12/01/2017 6:39 PM
[2017-12-01] MEDS: ATORVASTATIN 10 MG TAB PO SCH (21:03)
== END 2017-12-01 21:59 | DRG 393 ==
LOC: ER 13:52 → ERHOLD 16:30 → IMCU 11-22 17:01
PROVIDERS: ADMIT Internal Medicine; ATTEND Internal Medicine
PROC: 0DJ08ZZ Inspection of Upper Intestinal Tract, Via Natural or Artificial Opening Endoscopic (ICD-10-PCS; 2017-11-23)
PROC: 30243K1 Transfusion of Nonautologous Frozen Plasma into Central Vein, Percutaneous Approach (ICD-10-PCS; 2017-11-23)
PROC: 30243N1 Transfusion of Nonautologous Red Blood Cells into Central Vein, Percutaneous Approach (ICD-10-PCS; 2017-11-23)
PROC: 5A1D70Z Performance of Urinary Filtration, Intermittent, Less than 6 Hours Per Day (ICD-10-PCS; 2017-11-23)
PROC: 5A1D70Z Performance of Urinary Filtration, Intermittent, Less than 6 Hours Per Day (ICD-10-PCS; 2017-11-24)
PROC: 0DBL8ZX Excision of Transverse Colon, Via Natural or Artificial Opening Endoscopic, Diagnostic (ICD-10-PCS; 2017-11-27)
PROC: 0DBK8ZX Excision of Ascending Colon, Via Natural or Artificial Opening Endoscopic, Diagnostic (ICD-10-PCS; 2017-11-27)
PROC: 0DBN8ZX Excision of Sigmoid Colon, Via Natural or Artificial Opening Endoscopic, Diagnostic (ICD-10-PCS; principal; 2017-11-27 14:55)
PROC: 0DBM8ZX Excision of Descending Colon, Via Natural or Artificial Opening Endoscopic, Diagnostic (ICD-10-PCS; 2017-11-27 14:55)
PROC: 5A1D70Z Performance of Urinary Filtration, Intermittent, Less than 6 Hours Per Day (ICD-10-PCS; 2017-11-28)
PROC: 5A1D70Z Performance of Urinary Filtration, Intermittent, Less than 6 Hours Per Day (ICD-10-PCS; 2017-12-01)
DX: D12.5 Benign neoplasm of sigmoid colon (principal); N18.6 End stage renal disease; E11.22 Type 2 diabetes mellitus with diabetic chronic kidney disease; G62.9 Polyneuropathy, unspecified; I12.0 Hypertensive chronic kidney disease with stage 5 chronic kidney disease or end stage renal disease; D62 Acute posthemorrhagic anemia; R58 Hemorrhage, not elsewhere classified; Z99.2 Dependence on renal dialysis; R09.02 Hypoxemia; Z95.2 Presence of prosthetic heart valve; Z95.0 Presence of cardiac pacemaker; Z79.4 Long term (current) use of insulin; M89.8X9 Other specified disorders of bone, unspecified site; K20.9 Esophagitis, unspecified; Z86.73 Personal history of transient ischemic attack (TIA), and cerebral infarction without residual deficits; K64.8 Other hemorrhoids; D12.3 Benign neoplasm of transverse colon; D12.2 Benign neoplasm of ascending colon
CPT/HCPCS: 36415; 36430; 43235; 45384; 45385; 71045; 71046; 71250; 78582; 80048; 80053; 82948; 83735; 85014; 85018; 85025; 85610; 85730; 86704; 86850; 86900; 86920; 87340; 88305; 90962; 93005; 96361; 96366; 96372; 99285; A9540; A9558; J1940; J2001; J2405; J3430; J7030; J7040; J7050; P9016; P9017

== ENCOUNTER 2017-12-04 22:35 | Emergency (ER) | payer MEDICARE, OTHER ==
[~2017-12-04] VITALS: Ht 172.7 cm; Wt 99.8 kg
[~2017-12-04 22:35] MED LIST changes: +COUMADIN2.5 MG PO; +COUMADIN5 MG PO
[2017-12-04 23:02] LABS: BASOPHILS % 0.2 % (0.0-1.0); EOSINOPHILS # (AUTO) 0.4 (0.0-0.4); EOSINOPHILS % 3.1 % (0.0-6.0); HEMATOCRIT 30.4 % (38.2-49.6); HEMOGLOBIN 9.7 g/dL (14.0-18.0); LYMPHOCYTES # (AUTO) 1.5 (1.0-3.2); LYMPHOCYTES % 12.3 % (18.0-39.1); MEAN CORPUSCULAR HEMOGLOBIN 31.2 pg (28-32); MEAN CORPUSCULAR HGB CONC 31.9 g/dL (31-35); MEAN CORPUSCULAR VOLUME 97.7 fL (81-99); MONOCYTES # (AUTO) 0.9 (0.2-0.8); MONOCYTES % 7.7 % (4.4-11.3); NEUTROPHILS # (AUTO) 9.2 (2.1-6.9); NEUTROPHILS % 76.2 % (38.7-80.0); PLATELET COUNT 273 x10e3/uL (140-360); RED BLOOD COUNT 3.11 x10e6/uL (4.3-5.7); RED CELL DISTRIBUTION WIDTH 17.4 % (11.7-14.4)
[2017-12-04 23:20] LABS: ANION GAP 17.6 mmol/L (8-16); CALCIUM 8.3 mg/dL (8.4-10.2); CREATININE, SERUM 6.27 mg/dL (0.72-1.25); POTASSIUM 3.6 mmol/L (3.5-5.1)
== END 2017-12-05 00:56 | disposition home or self-care (01) ==
LOC: ER 22:35
DX: N47.6 Balanoposthitis (principal); I12.0 Hypertensive chronic kidney disease with stage 5 chronic kidney disease or end stage renal disease; N18.6 End stage renal disease; Z99.2 Dependence on renal dialysis; E03.9 Hypothyroidism, unspecified; E78.5 Hyperlipidemia, unspecified
CPT/HCPCS: 36415; 80048; 85025; 99282

== ENCOUNTER 2018-01-10 21:10 | Emergency (ER) | payer MEDICARE, OTHER ==
[~2018-01-10] VITALS: Ht 172.7 cm; Wt 99.8 kg
--- OUTSIDE RECORDS SUMMARY | 2018-01-10 21:13 | XMS REPORT | Continuity of Care Document ---
Author Author [facility] Organization [facility] Address [address] [place] [address] Phone Unavailable Care Team Providers Care Trouble Shooter Name Role Phone DEA GONZALES MD PCP Insurance Providers Guarantor Sumi Guzmán Address [address] [place] [address] Email @Sticky Payer Miscellaneous Hmo Policy Number [id number] Subscriber's Name Sumi Guzmán Relationship 18 Self / Same As Patient Group Number PLAN F Group Name RETIRED Effective Date 06 Payer Medicare A & B Policy Number [id number] Subscriber's Name Sumi Guzmán Relationship 18 Self / Same As Patient Group Name RETIRED Effective Date 03 Advance Directives Directive Response Recorded Date/Time Does the patient have an advance directive? No 11/22/17 5:50pm If yes, is advance directive on file with [facility]? No 11/22/17 5:50pm If not on file with [facility] will patient provide a copy? Yes 11/22/17 5:50pm Do you have a Directive to Physician? No 11/21/17 4:22pm Do you have a Medical Power of Crew Truck Driver? No 11/21/17 4:22pm Do you have an out of hospital Do Not Resuscitate Order? No 11/21/17 4:22pm Do you have any special needs we should be aware of? No 11/21/17 4:22pm Do you have a support person here with you today? Yes 11/21/17 4:22pm Did patient receive Notice of Privacy Practices? Yes 11/21/17 4:22pm Did patient receive patient rights and responsibilities? Yes 11/21/17 4:22pm Problems Medical Problem Onset Date Status GI bleeding Unknown Medications Current Home Medications Medication Dose Units Route Directions Days Qty Instructions Start Date Aspirin (Aspir 81) 81 Mg Tablet.dr 81 Mg Oral Daily Atorvastatin Calcium (Lipitor) 20 Mg Tablet 10 Mg Oral Bedtime Cholecalciferol (Vitamin D3) (Vitamin D3) 5,000 Unit Capsule Oral Daily Gabapentin 100 Mg Capsule 100 Mg Oral Daily Sertraline Hcl (Zoloft) 100 Mg Tablet 100 Mg Oral Daily Vit B Cmplx 3/Fa/Vit C/Biotin (Dina-Coreen Rx Tablet) 1 Each Tablet 1 Tab Oral Daily Warfarin Sodium (Coumadin) 2.5 Mg Tablet 2.5 Mg Oral Thursday 7 Tab Warfarin Sodium (Coumadin) 5 Mg Tablet 5 Mg Oral Today At 5:00PM 7 Tab Past Home Medications Medication Directions Ordered Status Amiodarone Hcl 200 Mg Tablet, 200 Mg Oral Daily Discontinued Hydralazine Hcl 50 Mg Tablet, 50 Mg Oral Twice A Day Discontinued Hydrochlorothiazide 12.5 Mg Capsule, Mg Oral Daily Discontinued Insulin Detemir (Levemir) 100 Unit/1 Ml Vial, 40 Units Sub-Q Bedtime Discontinued Insulin Glargine,Hum.rec.anlog (Lantus) 100 Unit/1 Ml Vial, 50 Units Sub-Q Daily Discontinued Insulin Regular, Human (Novolin R) 100 Unit/1 Ml Vial, Units Sub-Q Discontinued Levothyroxine Sodium (Synthroid) 100 Mcg Tablet, 100 Mcg Oral Daily Discontinued Metoprolol Tartrate (Lopressor) 50 Mg Tablet, 75 Mg Oral Twice A Day Discontinued Pravastatin Sodium (Pravachol) 40 Mg Tablet, 40 Mg Oral Daily Discontinued Tamsulosin Hcl (Flomax) 0.4 Mg Cap.sr.24h, 0.4 Mg Oral Daily Discontinued Torsemide (Demadex) 20 Mg Tablet, 40 Mg Oral Daily Discontinued Trujeo , 35 Subcutaneously Daily Discontinued Trulicity , 1 Intramusc Weekly Discontinued Warfarin Sodium (Coumadin) 6 Mg Tablet, 5 Mg Oral Daily Discontinued Warfarin Sodium 2.5 Mg Tablet, 2.5 Mg Oral Daily Discontinued Family History Relationship Condition Age at Onset Recorded Date/Time 33 Father Family history of congestive heart failure Not Recorded 2014 1:40am 31 Father Family history of hypertension Not Recorded 12/02/2014 1:40am Social History Social History Problem Response Recorded Date/Time Onset Date Status Hx Psychiatric Problems No 11/22/2017 5:50pm Not Applicable Not Applicable Hx Alcohol Use No 11/22/2017 5:50pm Not Applicable Not Applicable Smoking Status Start Date Stop Date Never Smoker Hospital Discharge Instructions No hospital discharge instruction information available. Plan of Care Discharge Date 12/01/17 9:59pm Disposition TRANS TO OTHER [facility] Instructions/Education Provided GI Bleeding Prescriptions See Medication Section Functional Status Query Response Date Recorded FUNCTIONAL STATUS . November 24, 2017 1:43pm Assistive Devices Straight Cane Rolling Walker November 22, 2017 5:52pm Toileting Ability Independent November 22, 2017 5:52pm Allergies, Adverse Reactions, Alerts Allergen Type Severity Reaction Status Last Updated No Known Drug Allergies Allergy Unknown Active 11/21/17 Immunizations No immunization information available. Vital Signs Acute Vital Signs Vital Response Date/Time Temperature (Fahrenheit) 97.8 degrees F (97.6 - 99.5) 12/01/2017 9:21pm Pulse Pulse Rate (adult) 80 bpm (60 - 90) 12/01/2017 9:21pm Respiratory Rate 16 bpm (12 - 24) 12/01/2017 9:21pm Blood Pressure 146/72 mm Hg 12/01/2017 9:21pm Height 5 ft 8 in 11/21/2017 1:52pm Weight 220.04 lb 12/01/2017 9:42am Body Mass Index 33.5 kg/m^2 12/01/2017 9:42am Results Laboratory Results Test Name Result Units Flags Reference Collection Date/Time Result Date/ Time Comments White Blood Count 12.98 x10e3/uL H 4.8-10.8 11/30/2017 6:00am 2017 6:41am Red Blood Count 2.92 x10e6/uL L 4.3-5.7 11/30/2017 6:00am 11/30/2017 6: 41am Hemoglobin 9.2 g/dL L 14.0-18.0 11/30/2017 6:00am 11/30/2017 6:41am Hematocrit 29.0 % L 38.2-49.6 11/30/2017 6:00am 11/30/2017 6:41am Mean Corpuscular Volume 99.3 fL H 81-99 11/30/2017 6:00am 11/30/2017 6: 41am Mean Corpuscular Hemoglobin 31.5 pg 28-32 11/30/2017 6:00am 11/30/2017 6:41am Mean Corpuscular Hemoglobin Concent 31.7 g/dL 31-35 11/30/2017 6:00am 11/30/2017 6:41am Red Cell Distribution Width 18.4 % H 11.7-14.4 11/30/2017 6:00am 2017 6:41am Platelet Count 215 x10e3/uL 140-360 11/30/2017 6:00am 11/30/2017 6: 41am Neutrophils (%) (Auto) 75.2 % 38.7-80.0 11/30/2017 6:00am 11/30/2017 6: 41am Lymphocytes (%) (Auto) 11.2 % L 18.0-39.1 11/30/2017 6:00am 11/30/2017 6 :41am Monocytes (%) (Auto) 8.2 % 4.4-11.3 11/30/2017 6:00am 11/30/2017 6: 41am Eosinophils (%) (Auto) 4.2 % 0.0-6.0 11/30/2017 6:00am 11/30/2017 6: 41am Basophils (%) (Auto) 0.2 % 0.0-1.0 11/30/2017 6:00am 11/30/2017 6:41am IM GRANULOCYTES % 1.0 % 0.0-1.0 11/30/2017 6:00am 11/30/2017 6:41am Neutrophils # (Auto) 9.8 H 2.1-6.9 11/30/2017 6:00am 11/30/2017 6: 41am Lymphocytes # (Auto) 1.5 1.0-3.2 11/30/2017 6:00am 11/30/2017 6:41am Monocytes # (Auto) 1.1 H 0.2-0.8 11/30/2017 6:00am 11/30/2017 6:41am Eosinophils # (Auto) 0.6 H 0.0-0.4 11/30/2017 6:00am 11/30/2017 6: 41am Basophils # (Auto) 0.0 0.0-0.1 11/30/2017 6:00am 11/30/2017 6:41am Absolute Immature Granulocyte (auto 0.13 x10e3/uL H 0-0.1 11/30/2017 6: 00am 11/30/2017 6:41am Prothrombin Time 14.1 seconds 11.9-14.5 11/23/2017 12:20pm 11/23/2017 1 :59pm Prothromb Time International Ratio 1.04 11/23/2017 12:20pm 2017 1:59pm Oral Anticoagulant Therapy INR Values: 1. Low Intensity Therapy 1.5 - 2.0 2. Moderate Intensity Therapy 2.0 - 3.0 3. High Intensity Therapy(1) 2.5 - 3.5 4. High Intensity Therapy(2) 3.0 - 4.0 5. Panic Value INR > 5.0 Activated Partial Thromboplast Time 34.9 seconds 23.8-35.5 11/23/2017 12 :20pm 11/23/2017 1:59pm Sodium Level 134 mmol/L L 136-145 11/30/2017 6:00am 11/30/2017 7:02am Potassium Level 3.9 mmol/L 3.5-5.1 11/30/2017 6:00am 11/30/2017 7:02am Chloride Level 95 mmol/L L 98-107 11/30/2017 6:00am 11/30/2017 7:02am Carbon Dioxide Level 23 mmol/L 22-29 11/30/2017 6:00am 11/30/2017 7: 02am Anion Gap 19.9 mmol/L H 8-16 11/30/2017 6:00am 11/30/2017 7:02am Blood Urea Nitrogen 37 mg/dL H 7-26 11/30/2017 6:00am 11/30/2017 7:02am Creatinine 8.41 mg/dL H 0.72-1.25 11/30/2017 6:00am 11/30/2017 7:02am BUN/Creatinine Ratio 4 L 6-25 11/30/2017 6:00am 11/30/2017 7:02am Estimat Glomerular Filtration Rate 6 ML/MIN L 60- 11/30/2017 6:00am 09/2018 7:02am Ranges were taken from the National Kidney Disease Education Program and the National Kidney Foundation literature. Reference ranges: 60 or greater: Normal 16-59 (for 3 consecutive months): Chronic kidney disease 15 or less: Kidney failure Glucose Level 146 mg/dL H 74-118 11/30/2017 6:00am 11/30/2017 7:02am Calcium Level 8.4 mg/dL 8.4-10.2 11/30/2017 6:00am 11/30/2017 7:02am Bedside Glucose 179 mg/dL H 70-120 12/01/2017 8:59pm 12/01/2017 9:06pm Meter ID: [id number] Magnesium Level 2.4 MG/DL H 1.3-2.1 11/30/2017 6:00am 11/30/2017 7:02am Total Bilirubin 0.6 mg/dL 0.2-1.2 11/21/2017 2:00pm 11/21/2017 2:42pm Aspartate Amino Transf (AST/SGOT) 26 IU/L 5-34 11/21/2017 2:00pm 2017 2:42pm Alanine Aminotransferase (ALT/SGPT) 36 IU/L 0-55 11/21/2017 2:00pm 12/2017 2:42pm Total Protein 6.0 g/dL L 6.5-8.1 11/21/2017 2:00pm 11/21/2017 2:42pm Albumin 2.8 g/dL L 3.5-5.0 11/21/2017 2:00pm 11/21/2017 2:42pm Globulin 3.2 g/dL 2.3-3.5 11/21/2017 2:00pm 11/21/2017 2:42pm Albumin/Globulin Ratio 0.9 0.8-2.0 11/21/2017 2:00pm 11/21/2017 2: 42pm Alkaline Phosphatase 70 IU/L 40-150 11/21/2017 2:00pm 11/21/2017 2: 42pm Hepatitis B Core Total Antibody Negative Negative 11/23/2017 9:15am 11/24/2017 9:12am Performed at: - [facility] [address] [id number] Yarder Puncher: Binu Horne MD, Phone: [phone] Hepatitis B Surface Antigen Negative Negative 11/23/2017 9:15am 11/24 9:12am Procedures Procedure Status Date Provider(s) EGD (esophagogastroduodenoscopy) Completed 11/23/17 GABO CHILEL MD Colonoscopy with polypectomy Completed 11/27/17 GABO CHILEL MD Colonoscopy with polypectomy Completed 11/27/17 GABO CHILEL MD X-ray of chest, two views Active 11/30/17 BENTON JOLLY MD Computed tomography of chest without contrast Active 12/01/17 BENTON JOLLY MD Encounters Encounter Location Arrival/Admit Date Discharge/Depart Date Attending Provider Discharged Inpatient [facility] 11/21/17 4:30pm 12/01/17 9:59pm DEA GONZALES MD Registered Clinic [facility] 11/20/17 3:31pm DEA GONZALES MD
--- OUTSIDE RECORDS SUMMARY | 2018-01-10 21:13 | XMS REPORT | Clinical Summary ---
Author Author [facility] Organization [facility] Address Unknown Phone Unavailable Care Team Providers Care Fish [employer] Game [employer] Manager Name Role Phone Antoni Salcido MD PCP [...] mL) insulin SKIN EVERY MORNING. 17 pen insulin lispro (HumaLOG 5 units under the skin 10 pen 1 01/20/20 Active KwikPen) 100 unit/mL BID 17 injection pen blood sugar diagnostic Glucose testing TID: 300 strip 1 03/17/20 Active strips (ONETOUCH VERIO) [id number] 17 strip test strips TRULICITY 1.5 mg/0.5 mL INJECT 1 DOSE (0.5 ML) 12 Syringe 1 03/30/20 Active pen injector SUBCUTANEOUSLY EVERY WEEK 17 dulaglutide (TRULICITY) Inject 1 Dose under the 12 Syringe 1 02/06/20 03/30/20 Discontin 1.5 mg/0.5 mL pen skin once a week. 16 17 ued injector amIODarone (PACERONE) 200 Take 200 mg by mouth 04/07/20 Discontin MG tablet daily. 17 ued insulin ASPART (NovoLOG Inject 5 Units under the 10 pen 1 10/02/20 01/20/20 Discontin Flexpen) 100 unit/mL skin 3 (three) times a 16 17 ued insulin pen day with meals. levothyroxine (SYNTHROID, Take 1 tablet (125 mcg 90 tablet 1 01/07/20 01/07/20 LEVOXYL) 125 mcg tablet total) by mouth every morning. ONETOUCH VERIO strip test TEST 3 TIMES [...] MD 01/19/2017 Refill Endocrinology Em Stephen LVN after 01/09/2017 Family History Medical History Relation Name Comments [...] * Comprehensive metabolic panel (03/31/2017 1:04 PM) Component Value Ref Range Glucose 116 (H) [...] approximately 13% higher for people identified as -Mauritanian. EGFR Non-Afr. Maur[place]ian 6 (L) > OR=60 mL/min/1.73m2 EGFR 7 [...] 46 U/L Specimen Performing Laboratory Blood [facility] after 01/09/2017 Insurance Payer Benefit Subscriber ID Type Phone Address Plan / Group MEDICARE MEDICARE xxxxxxxxxx Medicare [place], [place] PART A AND B [employer] [place] [employer] xxxxxxxxx Commercial [place]
--- NOTE | 2018-01-10 22:06 | Diagnostic Imaging Report ---
History:Fall Comparison studies:None Technique: Axial images were obtained from the skull base to the vertex. Coronal and sagittal images reconstructed from the axial data. Intravenous contrast: None Findings: Scalp/skull: No abnormalities. Extra-axial spaces: No masses. No fluid collections. Brain sulci: Mildly prominent. Ventricles: Mild compensatory dilatation. No hydrocephalus. Parenchyma: Vague hypodensities in the supratentorial white matter are small vessel ischemic changes. Cortical encephalomalacic changes, centered in the left postcentral gyrus and the result of an old vascular insult, are associated with regional volume loss and gliotic changes in the underlying white matter. No masses, hemorrhage, acute or additional chronic cortical vascular insults. Sellar/suprasellar region: No abnormalities. Craniocervical junction: Patent foramen magnum. No Chiari one malformation. Incidental findings: Atherosclerotic calcifications in the carotid siphons . Impression: No acute abnormalities. Chronic findings: 1. Mild generalized volume loss. 2. Mild supratentorial white matter small vessel ischemic changes. 3. Focal cortical insult centered in the left postcentral gyrus. Signed by: Dr. Dirk Hedrick M.D. on 01/10/2018 10:02 PM
--- NOTE | 2018-01-10 22:20 | Diagnostic Imaging Report ---
History: Fall Comparison studies: None Technique: Axial images were obtained through the cervical region.. Coronal and sagittal images reconstructed from the axial data.. Intravenous contrast: None Findings: Airway: Patent. Fractures: None. Soft tissues: No gross abnormalities. Atlantoaxial articulation: Mildly degenerated. Alignment: Straightening of the usual lordosis. No scoliosis. Cervicomedullary junction: No abnormalities. The foramen magnum is patent. Vertebrae: No infection or neoplasm. Degenerative changes: Mildly degenerated disc at C2-3, moderate from C3 to C6, mild from C6 to T2. Degenerative changes of the facets are moderate left mild right at C2-3 and moderate left at C3-4 and C4-5. Spinal canal stenosis is moderate at C3-4, mild at C4-5, severe left at C5-6 due to disc osteophyte complexes. Foraminal stenosis is moderate left at C2-3, severe at C3-4, moderate at C4-5, moderate right at C5-6 due to facet and uncovertebral arthrosis. Incidental atherosclerotic calcifications in the subclavian arteries and carotid bulbs. IMPRESSION: 1. No acute abnormalities. 2. Cannot adequately evaluate for ligament, spinal cord and or vascular abnormalities. 3. Degenerative changes as described. Signed by: Dr. Dirk Hedrick M.D. on 01/10/2018 10:17 PM
== END 2018-01-10 22:42 | disposition home or self-care (01) ==
LOC: ER 21:10
DX: S00.83XA Contusion of other part of head, initial encounter (principal); W06.XXXA Fall from bed, initial encounter; Y93.84 Activity, sleeping; Y92.003 Bedroom of unspecified non-institutional (private) residence as the place of occurrence of the external cause; G62.9 Polyneuropathy, unspecified; E78.5 Hyperlipidemia, unspecified; Z95.0 Presence of cardiac pacemaker; Z95.4 Presence of other heart-valve replacement
CPT/HCPCS: 70450; 72125; 99283

== ENCOUNTER → 2018-01-12 | Outpatient (CLI) | payer MEDICARE, OTHER ==
--- NOTE | 2018-01-12 09:06 | Diagnostic Imaging Report ---
PROCEDURE:SMALL BOWEL SERIES INDICATION:Anemia; colonic polyps. COMPARISON:None. TECHNIQUE:Routine small bowel follow-through performed through 20 minutes. Fluoroscopy time: 0.9 minutes; cumulative air kerma: 100.493 mGy. FINDINGS: Small bowel caliber, mucosal contour and filling are normal. Large volume of active peristalsis noted without other irregularity. CONCLUSION: Shortened small bowel transit time of less than 20 minutes in keeping with hypermotility. Otherwise, normal study. Dictated by: Gianfranco Mccabe M.D. on 01/12/2018 at 9:07 Electronically approved by: Gianfranco Mccabe M.D. on 01/12/2018 at 9:07
== END ==
LOC: DX 07:17
PROVIDERS: ATTEND Internal Medicine Gastroenterology
DX: D64.9 Anemia, unspecified (principal)
CPT/HCPCS: 74250

== ENCOUNTER → 2018-03-18 | Day surgery (SDC) | payer MEDICARE, OTHER ==
[2018-03-17 13:46] LABS: BASOPHILS # (AUTO) 0.1 (0.0-0.1); BASOPHILS % 0.7 % (0.0-1.0); EOSINOPHILS # (AUTO) 0.6 (0.0-0.4); EOSINOPHILS % 6.9 % (0.0-6.0); HEMATOCRIT 33.5 % (38.2-49.6); HEMOGLOBIN 10.6 g/dL (14.0-18.0); LYMPHOCYTES # (AUTO) 1.8 (1.0-3.2); LYMPHOCYTES % 19.2 % (18.0-39.1); MEAN CORPUSCULAR HEMOGLOBIN 30.1 pg (28-32); MEAN CORPUSCULAR HGB CONC 31.6 g/dL (31-35); MEAN CORPUSCULAR VOLUME 95.2 fL (81-99); MONOCYTES # (AUTO) 0.7 (0.2-0.8); PLATELET COUNT 218 x10e3/uL (140-360); RED BLOOD COUNT 3.52 x10e6/uL (4.3-5.7)
[~2018-03-18] MED LIST changes: +CALCIUM ACETAT667 MG PO; +FENTANYL CITRATE/PF 100MCG/2 ML INJ ONE; +HUMALOG100 UNIT/1 INJ; +METOCLOPRAMIDE HCL 10 MG/2ML VIAL ONE; +MIDAZOLAM HCL 2 MG/2 ML VIAL ONE; +MIDODRINE HCL10 MG PO; +PANTOPRAZOLE 40 MG 10ML VIAL ONE; +PANTOPRAZOLE SO40 MG PO; +PROPOFOL IV EMULSION 10 MG/ML 50 ML VIAL ONE; +SODIUM CHLORIDE 0.9% 500ML 500 ML ONE; +SYNTHROID125 MCG PO; +TRUJEO SQ; +TRULICITY INJ; +ULTRAM 50MG50 MG PO
--- OUTSIDE RECORDS SUMMARY | 2018-03-18 09:31 | XMS REPORT | Clinical Summary ---
Author Author [facility] Organization [facility] Address Unknown Phone Unavailable Care Team Providers Care Auto Body Repair Teacher Name Role Phone Antoni Salcido MD PCP [...] strip 1 03/17/20 Active strips (ONETOUCH VERIO) [id number] 17 strip test strips TRULICITY 1.5 mg/0.5 [...] 04/07/20 Discontin MG tablet daily. 17 ued levothyroxine (SYNTHROID, Take 1 tablet (125 mcg 90 tablet 1 01/07/20 01/07/20 LEVOXYL) 125 mcg tablet total) by mouth every 17 18 morning. [place] [employer]CH VERIO strip test TEST 3 TIMES A [...] Encounters Date Type Specialty Care Team Description 01/27/2018 Refill Endocrinology Maria De Jesus Rider MD 10/18/2017 Refill Endocrinology Maria De Jesus Rider MD 07/12/2017 Refill Endocrinology Maria De Jesus Rider MD 04/07/2017 Office Visit Endocrinology Maria De Jesus Rider MD Uncontrolled type 2 diabetes mellitus without complication, without long-term current use of insulin (Primary Dx) 03/30/2017 Refill Endocrinology Maria De Jesus Rider MD 03/17/2017 Refill Endocrinology Em Stephen LVN after 03/17/2017 Family History Medical History Relation Name Comments [...] Health Maintenance Due Date Last Done Comments DIABETIC FOOT EXAM 1948 DIABETIC RETINAL EYE EXAM 1948 SHINGRIX VACCINE (#1) 1988 ZOSTER VACCINE 1998 PNEUMOCOCCAL 2003 POLYSACCHARIDE VACCINE AGE 65 AND OVER PNEUMOCOCCAL-13 2003 INFLUENZA VACCINE 05/19/2018 Results * Hemoglobin A1c (03/31/2017 1:04 PM) [...] approximately 13% higher for people identified as -Tongan. EGFR Non-Afr. [place] 6 (L) > OR=60 mL/min/1.73m2 EGFR 7 [...] U/L Specimen Performing Laboratory Blood [facility] after 03/17/2017 Insurance Payer Benefit Subscriber ID Type Phone Address Plan / Group MEDICARE MEDICARE xxxxxxxxxx Medicare [place], [place] PART A AND B [employer] [place] [employer] Commercial [place]
--- OUTSIDE RECORDS SUMMARY | 2018-03-18 09:31 | XMS REPORT | Continuity of Care Document ---
Author Author [facility] Organization [facility] Address [address] [place] [address] Phone Unavailable Care Team Providers Care Counter Caser Name Role Phone DEA GONZALES MD PCP Insurance Providers Guarantor Sumi Guzmán Address [address] [place] [address] Email @[email or web address] Payer Miscellaneous Hmo Policy Number [id number] Subscriber's Name Sumi Guzmán Relationship 18 Self / Same As Patient Group Number PLAN F Group Name RETIRED Effective Date 06 Payer Medicare A & B Policy Number [id number] Subscriber's Name Sumi Guzmán Relationship 18 Self / Same As Patient Group Name RETIRED Effective Date 03 Advance Directives Directive Response Recorded Date/Time Does the patient have an advance directive? No 11/22/17 5:50pm If yes, is advance directive on file with [facility]? No 11/22/17 5:50pm If not on file with [facility] will patient provide a copy? Yes 01/10/18 9:14pm Do you have a Directive to Physician? No 01/10/18 9:14pm Do you have a Medical Power of Game And Fish Protector? No 01/10/18 9:14pm Do you have an out of hospital Do Not Resuscitate Order? No 01/10/18 9:14pm Do you have any special needs we should be aware of? No 01/10/18 9:14pm Do you have a support person here with you today? Yes 01/10/18 9:14pm Did patient receive Notice of Privacy Practices? Yes 01/10/18 9:14pm Did patient receive patient rights and responsibilities? Yes 01/10/18 9:14pm Problems Medical Problem Onset Date Status GI bleeding Unknown Medications Current Home Medications Medication Dose Units Route Directions Days Qty Instructions Start Date Aspirin (Aspir 81) 81 Mg Tablet. 81 Mg Oral Daily Atorvastatin Calcium (Lipitor) [...] information available. Plan of Care Discharge Date 01/10/18 10:42pm Disposition HOME, SELF-CARE Condition at Discharge Stable Instructions/Education Provided Contusion Fall Prevention Prescriptions See Medication Section Referrals DEA GONZALES MD Order Date: As needed Address: [address] [place] [id number] Additional Instructions/Education Follow up with your medical provider as needed. Keep your scheduled appointment for dialysis tomorrow. Take over the counter Tylenol medication as needed for comfort. discussed at the bedside, drink fluids, rest and return to the emergency department for any fever, shortness of breath, chest pain, abdominal pain, trouble handling oral secretions or any new concerns. Functional Status No functional status information available. Allergies, Adverse Reactions, Alerts Allergen Type Severity [...] 12/01/2017 9:21pm Height 5 ft 8 in 01/10/2018 9:25pm Weight 220 lb 01/10/2018 9:25pm Body Mass Index 33.5 kg/m^2 01/10/2018 9:25pm Results Laboratory Results Test Name Result Units Flags Reference Collection Date/Time Result Date/ Time Comments Prothrombin Time 14.1 seconds 11.9-14.5 11/23/2017 12:20pm [...] seconds 23.8-35.5 11/23/2017 12 :20pm 11/23/2017 1:59pm Bedside Glucose 179 mg/dL H 70-120 12/01/2017 8:59pm 12/01/2017 9:06pm Meter ID: [id number] Magnesium Level 2.4 MG/DL H 1.3-2.1 11/30/2017 [...] 9:15am 11/24/2017 9:12am Performed at: - [facility] [address] [id number] Electrocardiograph Technician: Binu Horne MD, Phone: [phone] Hepatitis B Surface Antigen Negative Negative 11/23/2017 9:15am 11/24 9:12am White Blood Count 12.02 x10e3/uL H 4.8-10.8 12/04/2017 10:52pm 2017 11:03pm Red Blood Count 3.11 x10e6/uL L 4.3-5.7 12/04/2017 10:52pm 12/04/2017 11 :03pm Hemoglobin 9.7 g/dL L 14.0-18.0 12/04/2017 10:52pm 12/04/2017 11:03pm Hematocrit 30.4 % L 38.2-49.6 12/04/2017 10:52pm 12/04/2017 11:03pm Mean Corpuscular Volume 97.7 fL 81-99 12/04/2017 10:52pm 12/04/2017 11: 03pm Mean Corpuscular Hemoglobin 31.2 pg 28-32 12/04/2017 10:52pm 2017 11:03pm Mean Corpuscular Hemoglobin Concent 31.9 g/dL 31-35 12/04/2017 10:52pm 12/04/2017 11:03pm Red Cell Distribution Width 17.4 % H 11.7-14.4 12/04/2017 10:52pm 2017 11:03pm Platelet Count 273 x10e3/uL 140-360 12/04/2017 10:52pm 12/04/2017 11: 03pm Neutrophils (%) (Auto) 76.2 % 38.7-80.0 12/04/2017 10:52pm 12/04/2017 11:03pm Lymphocytes (%) (Auto) 12.3 % L 18.0-39.1 12/04/2017 10:52pm 12/04/2017 11:03pm Monocytes (%) (Auto) 7.7 % 4.4-11.3 12/04/2017 10:52pm 12/04/2017 11: 03pm Eosinophils (%) (Auto) 3.1 % 0.0-6.0 12/04/2017 10:52pm 12/04/2017 11: 03pm Basophils (%) (Auto) 0.2 % 0.0-1.0 12/04/2017 10:52pm 12/04/2017 11: 03pm IM GRANULOCYTES % 0.5 % 0.0-1.0 12/04/2017 10:52pm 12/04/2017 11:03pm Neutrophils # (Auto) 9.2 H 2.1-6.9 12/04/2017 10:52pm 12/04/2017 11: 03pm Lymphocytes # (Auto) 1.5 1.0-3.2 12/04/2017 10:52pm 12/04/2017 11: 03pm Monocytes # (Auto) 0.9 H 0.2-0.8 12/04/2017 10:52pm 12/04/2017 11: 03pm Eosinophils # (Auto) 0.4 0.0-0.4 12/04/2017 10:52pm 12/04/2017 11: 03pm Basophils # (Auto) 0.0 0.0-0.1 12/04/2017 10:52pm 12/04/2017 11:03pm Absolute Immature Granulocyte (auto 0.06 x10e3/uL 0-0.1 12/04/2017 10: 52pm 12/04/2017 11:03pm Sodium Level 139 mmol/L 136-145 12/04/2017 10:52pm 12/04/2017 11:23pm Potassium Level 3.6 mmol/L 3.5-5.1 12/04/2017 10:52pm 12/04/2017 11: 23pm Chloride Level 97 mmol/L L 98-107 12/04/2017 10:52pm 12/04/2017 11:23pm Carbon Dioxide Level 28 mmol/L 22-29 12/04/2017 10:52pm 12/04/2017 11: 23pm Anion Gap 17.6 mmol/L H 8-12/04/2017 10:52pm 12/04/2017 11:23pm Blood Urea Nitrogen 23 mg/dL 7-12/04/2017 10:52pm 12/04/2017 11: 23pm Creatinine 6.27 mg/dL H 0.72-1.25 12/04/2017 10:52pm 12/04/2017 11:23pm BUN/Creatinine Ratio 4 L 6-25 12/04/2017 10:52pm 12/04/2017 11:23pm Estimat Glomerular Filtration Rate 9 ML/MIN L 60- 12/04/2017 10:52pm 11:23pm Ranges were taken from the National Kidney Disease Education Program and the National Kid[employer] literature. Reference ranges: 60 or greater: Normal 16-59 (for 3 consecutive months): Chronic kidney disease 15 or less: Kidney failure Glucose Level 146 mg/dL H 74-118 12/04/2017 10:52pm 12/04/2017 11:23pm Calcium Level 8.3 mg/dL L 8.4-10.2 12/04/2017 10:52pm 12/04/2017 11: 23pm Procedures Procedure Status Date Provider(s) EXCISION OF SIGMOID COLON, ENDO, DIAGN Completed 11/27/17 GABO CHILEL MD EXCISION OF DESCENDING COLON, ENDO, DIAGN Completed 11/27/17 GABO CHILEL MD EXCISION OF TRANSVERSE COLON, ENDO, DIAGN Completed 11/27/17 GABO CHILEL MD EXCISION OF ASCENDING COLON, ENDO, DIAGN Completed 11/27/17 GABO CHILEL MD INSPECTION OF UPPER INTESTINAL TRACT, ENDO Completed 11/23/17 GABO CHILEL MD TRANSFUSE NONAUT FROZEN PLASMA IN CENTRAL VEIN, PERC Completed 11/23/17 GABO CHILEL MD TRANSFUSE NONAUT RED BLOOD CELLS IN CENTRAL VEIN, PERC Completed 11/23/17 GABO CHILEL MD PERFORMANCE OF URINARY FILTRATION, <6 HRS/DAY Completed 11/23/17 THAI FORRESTER MD PERFORMANCE OF URINARY FILTRATION, <6 HRS/DAY Completed 11/24/17 THAI FORRESTER MD PERFORMANCE OF URINARY FILTRATION, <6 HRS/DAY Completed 11/28/17 THAI FORRESTER MD PERFORMANCE OF URINARY FILTRATION, <6 HRS/DAY Completed 12/01/17 THAI FORRESTER MD X-ray of chest, two views Active 11/30/17 BENTON JOLLY MD Computed tomography of chest without contrast Active 12/01/17 BENTON JOLLY MD Computed tomography of brain without radiopaque contrast Active 01/10/18 RAYNA SHARPE MD Computed tomography of cervical spine without contrast Active 01/10/18 RAYNA SHARPE MD Encounters Encounter Location Arrival/Admit Date Discharge/Depart Date Attending Provider Departed Emergency Room [facility] 01/10/18 9:10pm 10:42pm RAYNA SHARPE MD [facility]arted Emergency [facility] 12/04/17 10:35pm 12/05 12:56am SEYMOUR JI MD Discharged Inpatient [facility] 11/21/17 4:30pm 12/01/17 9:59pm DEA GONZALES MD Registered Clinic [facility] 11/20/17 3:31pm DEA GONZALES MD
[2018-03-18 10:10] LABS: INR 1.28; PARTIAL THROMBOPLASTIN TIME 30.8 seconds (23.8-35.5)
--- NOTE | 2018-03-18 14:26 | Operative Report ---
DATE OF PROCEDURE: March 18, 2018 REFERRING PHYSICIAN: Dr. Tristian Salcido PROCEDURE PERFORMED: Esophagogastroduodenoscopy with esophageal dilatation and biopsies. INDICATIONS FOR EGD: Dysphagia. MEDICATION: Patient was done under MAC. Please see anesthesiologist's note. PROCEDURE: With the patient in the left lateral decubitus position, the flexible fiberoptic Olympus gastroscope was introduced into the esophagus under direct visualization without any difficulty. There was a focal nodular friable area noted at approximately 25 cm from the incisors and that was biopsied. There was a mild stricture noted at the GE junction that was dilated to size 52-Georgian Delgado. Mucosa overlying the antrum revealed some patchy erythema and low-grade grade to moderate edema, and biopsies were obtained and sent to stain for H. pylori. The pylorus was of normal contour and shape. It was intubated with ease. The scope was advanced all the way to the 2nd portion of the duodenum. The scope was then withdrawn slowly. Mucosa overlying the proximal 2nd portion and the duodenal bulb appeared to be within normal limits. The scope was then withdrawn back into the stomach and retroflexed. The mucosa overlying the fundus and cardia appeared to be within normal limits. The scope was then straightened out. It was subsequently withdrawn. Patient tolerated the procedure well. IMPRESSION 1. Nodular friable area at 25 cm from the incisors, biopsies obtained. 2. Esophageal stricture at gastroesophageal junction, mild, dilated to size 52-Georgian Delgado. 3. Gastritis, biopsied. Biopsies sent to stain for Helicobacter pylori. PLAN: Follow up histology. Increase Protonix to 40 mg 1 p.o. a.c. b.i.d. Job#: [id number] RI cc:TRISTIAN SALCIDO MD
== END | disposition home or self-care (01) ==
LOC: OR 09:28
PROVIDERS: ATTEND Internal Medicine Gastroenterology
DX: K22.2 Esophageal obstruction (principal); K29.70 Gastritis, unspecified, without bleeding; K21.0 Gastro-esophageal reflux disease with esophagitis; K59.00 Constipation, unspecified; E03.9 Hypothyroidism, unspecified; G47.33 Obstructive sleep apnea (adult) (pediatric); I69.398 Other sequelae of cerebral infarction; R53.1 Weakness; E11.22 Type 2 diabetes mellitus with diabetic chronic kidney disease; N18.6 End stage renal disease; Z01.810 Encounter for preprocedural cardiovascular examination; Z01.812 Encounter for preprocedural laboratory examination; Z99.2 Dependence on renal dialysis; Z79.4 Long term (current) use of insulin; Z79.82 Long term (current) use of aspirin; Z68.32 Body mass index [BMI] 32.0-32.9, adult; Z95.0 Presence of cardiac pacemaker; Z95.2 Presence of prosthetic heart valve
CPT/HCPCS: 36415 ×2; 43239; 43450; 82948; 84132; 85025; 85610; 85730; 88305; 88312; 93005; J2250; J2765; J7040